=== PATIENT | male | born 1960 | race African-American/Black ===

== ENCOUNTER 2016-12-10 18:36 | Inpatient (IN) ==
[2016-12-10 19:36] LABS: URINE SOURCE VOIDED
[2016-12-10 19:38] LABS: BILIRUBIN URINE 3+ (NEGATIVE); BLOOD URINE NEGATIVE (NEGATIVE); CLARITY SL. CLOUDY (CLEAR); COLOR AMBER; GLUCOSE URINE NEGATIVE (NEGATIVE); LEUKOCYTES URINE 2+ (NEGATIVE); NITRITE URINE POSITIVE (NEGATIVE); PROTEIN URINE 1+(30 mg/dL) mg/dL (NEGATIVE); SP GRAVITY URINE 1.015
[2016-12-10 19:39] LABS: UROBILINOGEN URINE 3+(8 mg/dL)
[2016-12-10] MEDS ORDERED: NS 1,000 ML IV ONE ×2 (19:42→23:00)
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
[2016-12-10 19:46] LABS: MANUAL DIFF NEEDED? NO
[2016-12-10 19:51] LABS: BASO% 0.3 % (0.0-0.8); EOS# 0.02 X1000 (0.0-0.7); EOS% 0.3 % (0.0-10.0); HEMATOCRIT 40.7 % (42.0-52.0); HEMOGLOBIN 13.9 g/dL (14.0-18.0); IMM GRAN# 0.02 X1000 (0.0-0.04); IMM GRAN% 0.3 % (0.0-0.5); LYMPH# 1.67 X1000 (1.2-3.4); LYMPH% 22.9 % (20.5-51.1); MCH 30.3 PG (27-31); MCHC 34.2 g/dL (33-37); MCV 88.7 FL (81-99); MONO# 0.64 X1000 (0.11-0.59); MONO% 8.8 % (1.7-9.3); MPV 8.7 FL (7.4-10.4); NEUT% 67.4 % (42.2-75.2); PLT 374 X1000 (130-400); RBC 4.59 XMIL (4.7-6.1)
[2016-12-10 19:55] LABS: URINE RBC <10 /HPF (<10)
[2016-12-10 19:56] LABS: URINE CAST NONE SEEN /LPF; URINE CRYSTAL URIC ACID PRESENT /HPF; URINE CULTURE PL NEEDED? YES; URINE EPITHELIAL CELLS <10 /HPF (<10)
[2016-12-10 20:19] LABS: AGAP 13; ALKALINE PHOSPHATASE 256 U/L (32-122); AMYLASE 47 U/L (20-200); BUN 9 mg/dL (8-22); CALCIUM 8.7 mg/dL (8.8-10.2); CHLORIDE 100 mmol/L (98-107); COSMO 270; GOT 231 U/L (10-34); GPT 360 U/L (10-44); LIPASE 26 U/L (13-60); POTASSIUM 3.3 mmol/L (3.5-5.1); SODIUM 136 mmol/L (136-145); TCO2 23 mmol/L (25-35); TOTAL PROTEIN 7.5 g/dL (6.3-8.3)
[2016-12-10] MEDS ORDERED: ROCEPHIN 1 GM/NS 50 ML IV ONE (21:13)
[2016-12-10] MEDS ORDERED: ZOSYN 3.375 GM/NS 50 ML IV ONE (21:24)
[2016-12-10] MEDS ORDERED: NS 1,000 ML ONE (21:25)
[2016-12-10 21:32] LABS: UR AMPHETAMINES QUAL NONE DETECTED (NONE DETECT); UR BARBITUATES QUAL NONE DETECTED (NONE DETECT); UR BENZODIAZEPIN QUAL PRESUMPTIVE POSITIVE (NONE DETECT); UR CANNABINOIDS QUAL NONE DETECTED (NONE DETECT); UR COCAINE QUAL NONE DETECTED (NONE DETECT); UR MDMA QUAL NONE DETECTED (NONE DETECT); UR METHADONE QUAL NONE DETECTED (NONE DETECT); UR METHAMPHETAMINE QUAL NONE DETECTED (NONE DETECT); UR OPIATES QUAL NONE DETECTED (NONE DETECT); UR OXYCODONE QUAL NONE DETECTED (NONE DETECT); UR PCP QUAL NONE DETECTED (NONE DETECT); UR TCA QUAL NONE DETECTED (NONE DETECT)
[2016-12-10] MEDS ORDERED: TYLENOL PO PRN ×2 (23:13→23:53)
[2016-12-10] MEDS ORDERED: NS 1,000 ML IV SCH (23:15)
[2016-12-10 23:24] LABS: INR 1.07 (0.86-1.15); PROTIME 14.2 Seconds (12.1-15.5)
[2016-12-10 23:25] LABS: PTT PL 38.8 Seconds (22.6-43.9)
[2016-12-11] MEDS ORDERED: DILAUDID IV ONE (01:21)
[2016-12-11] MEDS ORDERED: NS 1,000 ML IV ONE (01:23)
[2016-12-11] MEDS: ZOSYN 2.25 GM/NS 50 ML IV SCH ×5 (04:27→23:07)
[2016-12-11] MEDS: DILAUDID IV PRN ×3 (04:29→21:04)
[2016-12-11 06:29] LABS: MANUAL DIFF NEEDED? NO
--- NOTE | 2016-12-11 06:57 | EKG Report ---
Test Performed on : 12/11/2016 06:17:55 AM Test Reason : Transaminitis,Abd Pain, Poss Surgical Patient Blood Pressure : / mmHG Vent. Rate : 074 BPM Atrial Rate : 074 BPM P-R Int : 142 ms QRS Dur : 088 ms QT Int : 404 ms P-R-T Axes : 062 013 023 degrees QTc Int : 448 ms Normal sinus rhythm. Normal ECG No previous ECGs available Confirmed by Dusty HENDRICKSON, Sky Ramirez ([id number]) on 12/11/2016 6:51:34 PM
[2016-12-11] MEDS: PRILOSEC PO SCH (06:58)
[2016-12-11] MEDS ORDERED: PRILOSEC PO SCH (07:00)
[2016-12-11 07:16] LABS: AGAP 12; ALBUMIN 3.1 g/dL (3.5-5.0); ALKALINE PHOSPHATASE 218 U/L (32-122); BASO% 0.3 % (0.0-0.8); BUN 9 mg/dL (8-22); CALCIUM 7.7 mg/dL (8.8-10.2); CHLORIDE 107 mmol/L (98-107); COSMO 276; EOS# 0.07 X1000 (0.0-0.7); EOS% 1.2 % (0.0-10.0); GOT 153 U/L (10-34); GPT 281 U/L (10-44); HEMATOCRIT 36.8 % (42.0-52.0); HEMOGLOBIN 12.5 g/dL (14.0-18.0); IMM GRAN# 0.02 X1000 (0.0-0.04); IMM GRAN% 0.3 % (0.0-0.5); LYMPH# 1.84 X1000 (1.2-3.4); LYMPH% 30.3 % (20.5-51.1); MCH 30.3 PG (27-31); MCV 89.1 FL (81-99); MONO# 0.74 X1000 (0.11-0.59); MONO% 12.2 % (1.7-9.3); MPV 9.2 FL (7.4-10.4); NEUT% 55.7 % (42.2-75.2); PLT 340 X1000 (130-400); POTASSIUM 3.6 mmol/L (3.5-5.1); RBC 4.13 XMIL (4.7-6.1); SODIUM 139 mmol/L (136-145); TCO2 20 mmol/L (25-35); TOTAL BILIRUBIN 6.32 mg/dL (0.20-1.00)
[2016-12-11] MEDS ORDERED: FLUZONE QUAD 2016-2017 SYRINGE IM ONE (08:10)
--- NOTE | 2016-12-11 08:31 | Diag Imaging Result Document ---
PROCEDURE NAME: FLAT/UPRIGHT ABD/1 VIEW CHEST - 12/10/2016 FLAT AND UPRIGHT ABDOMEN: FINDINGS: There is a wall stent apparently in the area of the common bile duct. There is stool in the colon. The small bowel and stomach are not distended. There is no evidence of organomegaly or mass. IMPRESSION: No evidence of obstruction. Mild constipation. PA CHEST: FINDINGS: There has been improvement in the atelectasis over the lung bases since 09/26/2015. Otherwise, there has been no significant change. IMPRESSION: No acute disease.
[2016-12-11] MEDS ORDERED: XANAX PO SCH (09:00)
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
[2016-12-11] MEDS: PRINZIDE 10/12.5MG PO SCH ×2 (11:51→13:38)
[2016-12-11] MEDS: XANAX PO SCH ×3 (11:51→16:38)
--- NOTE | 2016-12-11 15:40 | PROGRESS NOTE ---
DATE: 12/11/2016 SUBJECTIVE: The patient is still complaining of some mild abdominal pain. No nausea. No vomiting. No constipation. He is passing flatus. No bowel movement yet. OBJECTIVE: Vital signs: Blood pressure 140/86, pulse of 80, respirations 16, temperature 98.3 degrees, saturation of 96% on room air. General Appearance: Well-developed, well-nourished black male in mild distress due to abdominal pain. HEENT: Anicteric. Clear conjunctivae. Neck: Supple. No JVD. No bruit. Cardiovascular: S1, S2. Normal rate and rhythm. No murmur, rubs, or gallops. Pulmonary: Clear to auscultation bilaterally. GI: Soft, tender to palpation diffusely but mostly in the upper quadrants. Extremities: No clubbing, cyanosis, or edema. LABORATORY: Sodium 139, potassium 3.6, chloride 107, bicarb 20, BUN 9, creatinine 0.8, glucose of 86, AST 153, ALT 281, alkaline phosphatase of 218, albumin of 3.1. ASSESSMENT AND PLAN: 1. This is a 56-year-old black male with history of mass on head of the pancreas followed by Dr. Borjas at [facility] in [place]. Has not been followed with him seen August of last year. Concerning for malignancy and he had a stent on the common bile duct. Record from [place] still pending. Will send the patient for a CAT scan of the abdomen and pelvis with contrast to assess his pancreas. 2. For his transaminitis gastrointestinal is following. It is improving. Continue supportive care. Questionable the common bile duct stent may have been dislodged. 3. Urinary tract infection. The patient is on Zosyn currently, will keep him on for now. 4. Hypertension. Will continue lisinopril and hydrochlorothiazide. 5. Gastroesophageal reflux disease. Continue Prilosec. 6. Deep vein thrombosis prophylaxis. Will put the patient on Lovenox. CODE STATUS: The patient is a full code.
[2016-12-11] MEDS: LOVENOX SUBQ SCH (16:39)
--- NOTE | 2016-12-11 17:40 | Diag Imaging Result Document ---
PROCEDURE NAME: CT ABD/PELVIS W/ IV CONT ONLY - 12/11/2016 CT ABDOMEN PELVIS WITH IV CONTRAST ONLY: FINDINGS: Exam performed with intravenous contrast only per request of the referring provider. A dose reduction protocol was used. Compared with 09/04/2016. There is dependent atelectasis of the bilateral posterior lung bases. There is a biliary stent which appears stable in position. There has been interval decrease in pneumobilia. There is a small amount of air in the gallbladder. There are no calcified gallstones or gross pericholecystic inflammatory changes identified. There is mild dilatation of central intrahepatic bile ducts which appear grossly stable. There is no other liver lesion identified. There is no pancreatic mass or inflammation identified. There are mildly prominent shawna hepatis/portacaval and other retroperitoneal lymph nodes which are overall appear stable to slightly more prominent. There are no acute abnormalities of the spleen, adrenal glands, or kidneys identified. There is no hydronephrosis. There is no evidence of bowel obstruction. There is no substantial bowel wall thickening identified. There is no intraluminal gas or abscess identified related to bowel. There is no free air identified. IMPRESSION: 1. Dependent atelectasis at bilateral lung bases. 2. Biliary stent which appears stable in position. Interval decrease in pneumobilia. Grossly stable mild dilatation of central intrahepatic ducts. No calcified gallstones or gross pericholecystic inflammation seen. No pancreatic mass or inflammation identified. 3. Mild adenopathy, which may have increased slightly in the upper abdomen. 4. No bowel obstruction. Unremarkable appendix. 5. No abscess. No free air.
[2016-12-12] MEDS: ZOSYN 2.25 GM/NS 50 ML IV SCH ×6 (03:56→21:31)
[2016-12-12] MEDS: DILAUDID IV PRN ×4 (04:31→21:13)
[2016-12-12 05:46] LABS: MANUAL DIFF NEEDED? NO
[2016-12-12 05:50] LABS: BASO% 0.5 % (0.0-0.8); EOS# 0.08 X1000 (0.0-0.7); EOS% 1.4 % (0.0-10.0); HEMOGLOBIN 13.9 g/dL (14.0-18.0); IMM GRAN# 0.02 X1000 (0.0-0.04); IMM GRAN% 0.3 % (0.0-0.5); LYMPH# 1.72 X1000 (1.2-3.4); LYMPH% 29.9 % (20.5-51.1); MCH 30.4 PG (27-31); MCHC 34.8 g/dL (33-37); MCV 87.5 FL (81-99); MONO# 0.71 X1000 (0.11-0.59); MONO% 12.3 % (1.7-9.3); MPV 8.7 FL (7.4-10.4); NEUT% 55.6 % (42.2-75.2); PLT 414 X1000 (130-400); RBC 4.57 XMIL (4.7-6.1)
[2016-12-12 06:12] LABS: AGAP 11; ALBUMIN 3.6 g/dL (3.5-5.0); ALKALINE PHOSPHATASE 265 U/L (32-122); BUN 6 mg/dL (8-22); CALCIUM 9.3 mg/dL (8.8-10.2); CHLORIDE 101 mmol/L (98-107); COSMO 274; GOT 185 U/L (10-34); GPT 309 U/L (10-44); SODIUM 138 mmol/L (136-145); TCO2 26 mmol/L (25-35); TOTAL BILIRUBIN 7.77 mg/dL (0.20-1.00); TOTAL PROTEIN 7.1 g/dL (6.3-8.3)
[2016-12-12] MEDS: PRILOSEC PO SCH (06:19)
[2016-12-12] MEDS: PRINZIDE 10/12.5MG PO SCH (09:09)
[2016-12-12] MEDS: XANAX PO SCH ×3 (09:10→21:13)
--- NOTE | 2016-12-12 12:03 | CONSULTATION ---
DATE OF CONSULTATION: 12/11/2016 REASON FOR CONSULTATION: Possible occlusion of the biliary stent. HISTORY OF PRESENT ILLNESS: Mr. Anthony is a 56-year-old gentleman with a history of chronic pancreatitis and possible pancreatic mass. At that time a year ago, I tried to put a stent and there was high grade occlusion. We we sent him to Dr. Borjas at which time he had a metal stent put in. Since that time, the patient had complete resolution of the pancreatic mass affect from pancreatitis. However, his urine is getting darker. He was getting more abdominal pain and unable to eat. He had a somewhat similar spell in July, was treated with antibiotics. He came in with the same thing to the [facility] talked to me and we started him on Zosyn which we will continue. He probably needs his stent cleaned up. We will also get a CT scan down there and I will review that. REVIEW OF SYSTEMS: Fourteen point review was conducted with patient and is all negative other than HPI. PAST MEDICAL HISTORY: Nephrolithiasis, hypertension, hyperlipidemia, migraine, chronic pancreatitis, history of pancreatic mass which has resolved since, common bile duct stent placement which is likely partially occluded. PAST SURGICAL HISTORY: 1. Left eye surgery at 13 for traumatic injury. 2. Common bile duct stent placement. SOCIAL HISTORY: He smokes occasionally. He does not drink or take any drugs. FAMILY HISTORY: Positive for diabetes type 2, heart disease, hypertension. ALLERGIES: None. HOME MEDICATIONS: Lisinopril and hydrochlorothiazide 20/25 once a day, Sanborn 10 three times a day, Nexium 40 daily, Xanax 1 p.o. t.i.d. PHYSICAL EXAMINATION: Vital Signs: He is a pleasant gentleman, seems to be in mild distress. Temperature of 98 degrees, heart rate 80, respirations 18, blood pressure 120/80, O2 saturation 98% on room air. General: Well nourished, well built male in mild distress. HEENT: No conjunctival pallor. There was scleral icterus present. Neck: Supple. Trachea midline. Heart: Normal first and second heart sounds. Lungs: A few basilar rales. Abdomen: The abdomen is tender on deep palpation in the epigastric area. Bowel sounds present. Extremities: Unremarkable. LABORATORY DATA: Reveals a normal white count. The PT is slightly high at 14.2. Potassium low at 3.3. Total bilirubin 7.2, AST 231, ALT 360, alkaline phosphatase 256, amylase 47, lipase 26. Alcohol level 0. He does have positive benzodiazepines but he takes Xanax. CT scan of the abdomen once again shows resolution of pancreatic mass, mild intrahepatic biliary ductal dilation, stent seems to be in good position. ASSESSMENT AND PLAN: 1. Possible partial occlusion of the metal stent. 2. Possible cholangitis secondary to #1. 3. Continued increase in alkaline phosphatase and jaundice since July. I have reviewed all his old records and there is a steady increase that needs to be addressed. 4. Abdominal pain secondary to #1 and 2. 5. Hypertension. We will continue the antibiotics for 2-3 days. We will see how the liver function tests trend and I will plan on going in and looking at the stent and possibly cleaning it. If that is not possible, then we will deploy another stent. Further evaluation will be dependent on clinical response.
--- NOTE | 2016-12-12 16:12 | PROGRESS NOTE ---
DATE: 12/12/2016 SUBJECTIVE: The patient is still complaining of having abdominal pain. He denies having any fever or chills. Still having mild nausea, but able to keep food down without any difficulty. OBJECTIVE: Vital Signs: Blood pressure 121/66, pulse of 77, respirations 16, temperature 98.3 degrees, saturation 95% on room air. General Appearance: Well-developed, well-nourished, black male, in mild distress. HEENT: Anicteric sclerae. Clear conjunctivae. Neck: Supple. No JVD. No bruit. Cardiovascular: S1, S2. Normal rate and rhythm. No murmur, rubs, or gallops. Pulmonary: Clear to auscultation bilaterally. GI: Soft, mildly tender to palpation around the epigastric regions. Lower extremity: No clubbing, cyanosis, or edema. LABORATORY: White count 5.75, hemoglobin 13.9, hematocrit of 40, platelets of 414,000. Chemistry: Sodium 138, potassium 4, chloride 101, bicarb 26, BUN 6, creatinine 0.9, glucose of 107. Liver function tests: AST 185, ALT 309, alkaline phosphatase of 265. ASSESSMENT AND PLAN: This is a 56-year-old black male admitted to the hospital for transaminitis. 1. Transaminitis. The patient had stent placed last year on his common bile duct concerning for obstruction of the stent. Gastroenterology is following. They are planning to do another endoscopic retrograde cholangiopancreatography to clean out the stent if his alkaline phosphatase continues to elevate. 2. Hypertension. We will continue lisinopril and hydrochlorothiazide. 3. Anxiety disorder. Continue Xanax. 4. Deep vein thrombosis prophylaxis. Continue Lovenox. 5. Code Status: The patient is a full code.
[2016-12-12] MEDS: SODIUM CHLORIDE 0.9% INJ SCH (16:29)
[2016-12-12] MEDS: PROTONIX IV SCH (16:29)
[2016-12-12] MEDS: LOVENOX SUBQ SCH (16:29)
--- NOTE | 2016-12-12 18:30 | PROGRESS NOTE ---
DATE: 12/12/2016 SUBJECTIVE: Patient complains of ongoing epigastric pain and periumbilical abdominal pain. He also complains of change in color of his urine to deep yellow color. He denies any vomiting today. He denies any fevers, rigors, chills. Vital signs: Temperature of 97.6 degrees, pulse rate of 79, respiratory rate of 16, blood pressure 115/70, saturating 90% on room air. General Appearance: Moderately built, moderately nourished, lying in bed, in no acute distress. HEENT: Icteric sclerae. Mild pallor. Pupils equal, react to light. Neck: Supple. Abdomen : Discomfort. No rebound or guarding. Extremities: No cyanosis, clubbing, and edema. Neurologic: He is alert, awake, oriented. LABS: His hemoglobin and hematocrit 13.9 and 40, white count 5.7, platelet count of 14,140. Sodium 138, potassium 4, chloride 101, bicarb 20. Anion gap 11. BUN of 6, creatinine 0.9, glucose of 107, calcium is 9.3. Total bilirubin 7.7, AST 185, ALT 309, alkaline phosphatase 265, total protein 7.1, albumin 2.6. INR 1.07, and urine tox positive for benzodiazepines. IMPRESSION AND PLAN: 1. Pancreatic head mass discovered in 2016 status post ERCP with Metal stent placement by Dr. Palafox at [facility] in 2016. Being admitted with worsening jaundice, elevated liver enzymes and abdominal pain. Suspect the stent occlusion. In this regard the patient will be continued on IV fluids, IV antibiotics. Will velarde culture the patient. We will draw some blood cultures. Dr. Aguila will assess and evaluate for possible ERCP on Saturday. His pancreatic head mass has resolved per the current imaging. 2. Pancreatic head mass discovered in 2016. Mildly elevated CA-19-9. Based on current CT scan the pancreatic head swelling had resolved. 3. GI prophylaxis with Protonix once daily. 4. Bowel regimen. We will start the patient on MiraLAX and Dulcolax. 5. Further continuing the pain management per the primary team. 6. Jaundice: will watch for now and avoid hepatotoxic drugs. Discussed the above plan with patient and all questions were answered. Further recommendations pending the hospital course. [facility]
[2016-12-13] MEDS: DILAUDID IV PRN ×4 (04:02→22:45)
[2016-12-13] MEDS: ZOSYN 2.25 GM/NS 50 ML IV SCH ×4 (04:24→21:47)
[2016-12-13 06:15] LABS: BASO% 1.8 % (0.0-0.8); EOS# 0.16 X1000 (0.0-0.7); EOS% 3.5 % (0.0-10.0); HEMATOCRIT 38.8 % (42.0-52.0); HEMOGLOBIN 13.5 g/dL (14.0-18.0); IMM GRAN# 0.03 X1000 (0.0-0.04); IMM GRAN% 0.7 % (0.0-0.5); LYMPH# 1.37 X1000 (1.2-3.4); LYMPH% 30.1 % (20.5-51.1); MANUAL DIFF NEEDED? YES; MCH 30.4 PG (27-31); MCHC 34.8 g/dL (33-37); MCV 87.4 FL (81-99); MONO# 0.52 X1000 (0.11-0.59); MONO% 11.4 % (1.7-9.3); MPV 8.6 FL (7.4-10.4); NEUT% 52.5 % (42.2-75.2); PLT 424 X1000 (130-400); RBC 4.44 XMIL (4.7-6.1)
[2016-12-13 06:24] LABS: AGAP 13; ALBUMIN 3.4 g/dL (3.5-5.0); ALKALINE PHOSPHATASE 256 U/L (32-122); AMYLASE 38 U/L (20-200); BUN 6 mg/dL (8-22); CALCIUM 9.2 mg/dL (8.8-10.2); CHLORIDE 99 mmol/L (98-107); COSMO 273; GOT 218 U/L (10-34); GPT 356 U/L (10-44); LIPASE 20 U/L (13-60); POTASSIUM 3.8 mmol/L (3.5-5.1); SODIUM 138 mmol/L (136-145); TCO2 26 mmol/L (25-35); TOTAL BILIRUBIN 6.72 mg/dL (0.20-1.00)
[2016-12-13 06:30] LABS: EOS 4 % (1-10); LYMPHS 26 % (21-51); MONO 6 % (1-9)
[2016-12-13] MEDS: XANAX PO SCH ×3 (10:49→21:47)
[2016-12-13] MEDS: PRINZIDE 10/12.5MG PO SCH (10:49)
--- NOTE | 2016-12-13 11:37 | PROGRESS NOTE ---
DATE: 12/13/2016 SUBJECTIVE: Patient currently resting in bed. He complained of abdominal discomfort but it has improved from yesterday. He had 1 bowel movement today. He denies any nausea, vomiting, fevers, rigors, chills.Vital signs: Temperature 98.5, pulse rate of 83, respiratory rate 16, blood pressure 102/61, saturating 98% on room air. General Appearance: Moderately built, moderately nourished, lying in bed, in no acute distress. HEENT: Icteric sclerae. Mild pallor. Pupils equal, react to light. Neck: Is supple. Abdomen: Discomfort noted in the right upper quadrant. No rebound. No guarding. Bowel sounds are present. Extremities: No cyanosis, clubbing, edema. Neurologic: He is alert, awake, oriented. LABS: His hemoglobin and hematocrit is 13.5 and 38.8, white count of 4.5, platelet count of 424,000. Sodium 130, potassium 3.8, chloride 99, bicarb 20, anion gap 13, BUN of 6, creatinine 0.9, glucose of 91, calcium 9.2. Total bilirubin 6.7, direct of 5.4. AST 218, ALT 356, alkaline phosphatase is 256. Total protein 7, albumin of 3.4, amylase of 38, lipase of 20. Looking back at his records from 09/04/2016 his acute hepatitis panel was negative. His RUDDY was positive. Anti-DS DNA was 34.26 which is positive. His anti SSA was positive more than 8. Antimitochondrial antibody was negative less than 0.01. Anti smooth antibody was negative. IMPRESSION AND PLAN: 1. Jaundice secondary to common bile duct metal stent occlusion which was performed by Dr. Palafox at [facility] in August 2016. Will continue on supportive care with IV fluids, IV antibiotics, IV pain control, IV antiemetics. The patient will be scheduled for ERCP tomorrow by Dr. Aguila. The risks, benefits, indications and alternatives discussed with the patient and all questions answered. 2. Pancreatic head mass was discovered in 2015 which is now resolved per the repeat CT scan. It is unclear of pathology. We need to perform a few more tests like IgG 4 level to evaluate for autoimmune pancreatitis or groove pancreatitis. 3. GI prophylaxis with Protonix once daily. 4. Bowel regimen with MiraLAX and Dulcolax to continue as patient is on IV pain control. 5. The patient is positive RUDDY. Unclear significance but if his liver enzymes continue to stay elevated despite placement of the stent we may have to perform a liver biopsy at some point. 6. Patient will need an outpatient workup by a department assistant to evaluate for any kind of autoimmune illness. 7. Above plan discussed with the patient and all questions answered.
[2016-12-13] MEDS: PROTONIX IV SCH ×2 (12:12→14:46)
--- NOTE | 2016-12-13 14:51 | PROGRESS NOTE ---
DATE: 12/13/2016 SUBJECTIVE: The patient is feeling about the same as he was yesterday. Still having mild abdominal pain. No fever. No chills. OBJECTIVE: Vital Signs: Blood pressure 121/78, pulse of 88, respirations 16, temperature 97.8 degrees, saturation 94% on room air. General Appearance: Obese, black male, in no acute distress. HEENT: Anicteric. Clear conjunctivae. Neck: Supple. No JVD. No bruit. Cardiovascular: S1, S2. Normal rate and rhythm. No murmur, rubs, or gallops. Pulmonary: Clear to auscultation bilaterally. GI: Mild tenderness to palpation about the epigastric region. Extremities: No clubbing, cyanosis, or edema. LABORATORY: His white count is 4.5, hemoglobin 13.5, hematocrit of 38.8, platelets of 424,000. Chemistry: Sodium 138, potassium 3.8, chloride 99, bicarb 24, BUN 6, creatinine 0.9, glucose 91. His AST is elevated to 218, ALT 356, and alkaline phosphatase of 256. ASSESSMENT AND PLAN: This is a 56-year-old with transaminitis. 1. Transaminitis. The patient had a stent placed when he had the pancreatic mass; that has since resolved. Concerning for nonfunctional stent. GI was consulted and plan to do an ERCP tomorrow to remove the stent and possibly replace it. We will continue the current antibiotics for now. 2. Hypertension. We will continue Zestoretic. 3. Deep vein thrombosis prophylaxis. The patient is on Lovenox.
[2016-12-13] MEDS: LOVENOX SUBQ SCH (16:20)
[2016-12-14] MEDS: DILAUDID IV PRN ×4 (04:16→21:05)
[2016-12-14] MEDS: ZOSYN 2.25 GM/NS 50 ML IV SCH ×4 (05:28→21:57)
[2016-12-14] MEDS: PRINZIDE 10/12.5MG PO SCH ×2 (08:52→08:55)
[2016-12-14] MEDS: XANAX PO SCH ×3 (09:34→21:06)
--- NOTE | 2016-12-14 11:33 | PROGRESS NOTE ---
DATE: 12/14/2016 SUBJECTIVE: Patient reports he is having mild abdominal pain but it is relieved by medications. He denies any nausea, vomiting, or additional symptoms at this time. OBJECTIVE: Vital Signs: Temperature 98.5 degrees, pulse 90, respirations 18, blood pressure 122/85, O2 saturation 97% on room air. HEENT: Normocephalic, atraumatic. Neck : Supple. No JVD Chest: Respirations unlabored. No accessory muscle use noted. Cardiovascular : Normal S1, S2. Abdomen: Soft. Moderately tender in the epigastric area. Positive bowel sounds. Extremities: No evidence of clubbing, cyanosis, or edema. Neurologic: The patient is alert and oriented x4. No neurological deficits noted. DIAGNOSTIC DATA: CBC: White count 4.55, hemoglobin and hematocrit 13.5, 38.8, platelets 424,000. BMP unremarkable. LFTs: Total bilirubin 6.72, direct 5.40, AST 218, ALT 356. Alkaline phosphatase 256. ASSESSMENT AND PLAN: 1. Transaminitis. The patient did have a stent placed for pancreatic mass that has since resolved according to CAT scan. There is concern for a nonfunctional stent and he is awaiting an ERCP by Dr. Aguila today to replace the occluded stent. Continue with current antibiotics and pain medications as well as antiemetics. 2. Hypertension. This is controlled. We will continue current therapy. 3. Deep vein thrombosis prophylaxis. He is on Lovenox. Further orders pending physician evaluation. Dictated by ERIKA Dumont for Noah Pruitt MD I personally evaluated and examined the patient in conjunction to the REHAB AIDE and agreed with her assessment and plans. Discussed with Dr. Meadows. FELICIANO
[2016-12-14] MEDS ORDERED: GLUCAGON ONE (14:18)
[2016-12-14] MEDS ORDERED: MYLICON DROPS (DOSE) MISC ONE (14:40)
[2016-12-14] MEDS ORDERED: DIPRIVAN 1% ONE (15:46)
[2016-12-14] MEDS ORDERED: XYLOCAINE-MPF 2% ONE (15:50)
[2016-12-14] MEDS ORDERED: ANESTHESIA PB SET 88 IN 5742 ONE (15:51)
[2016-12-14] MEDS ORDERED: LR 1,000 ML ONE (15:51)
--- NOTE | 2016-12-14 15:53 | Diag Imaging Result Document ---
PROCEDURE NAME: ERCP-BILIARY AND PANCREATIC - 12/14/2016 ERCP, 8 IMAGES: FINDINGS: No contrast was administered. There is placement of a biliary stent through a wall stent by Dr. Alfaro. IMPRESSION: Placement of biliary stent.
[2016-12-14] MEDS: ZOFRAN IV PRN ×2 (16:08→21:05)
[2016-12-14] MEDS: PROTONIX IV SCH ×2 (16:18→16:19)
[2016-12-14] MEDS: LOVENOX SUBQ SCH (16:20)
[2016-12-15] MEDS: ZOSYN 2.25 GM/NS 50 ML IV SCH ×4 (05:10→23:25)
[2016-12-15] MEDS: XANAX PO SCH ×2 (10:00→14:30)
[2016-12-15] MEDS: PRINZIDE 10/12.5MG PO SCH (10:00)
--- NOTE | 2016-12-15 14:18 | PROGRESS NOTE ---
DATE: 12/15/2016 SUBJECTIVE: The patient does have a temperature and fever overnight but no nausea, no vomiting. Vital signs: Blood pressure 96/57, pulse of 65, respiration is 20, temperature of 100.4 degrees. General appearance: A well-developed, well-nourished, black male, in no acute distress. HEENT: Anicteric. Clear conjunctivae. Neck: Supple. No JVD. No bruit. Cardiovascular: S1, S2. Normal rate and rhythm. No murmur, rubs, or gallops. Pulmonary: Clear to auscultation bilaterally. GI: Soft, tender to palpation on the right upper quadrant. Extremities: No clubbing, cyanosis, or edema. LABORATORY: Sodium 136, potassium of 5.0, chloride 97, bicarb 25, BUN 3.5. AST is 170, ALT 347, creatinine 0.8. White count 9.83, hemoglobin 14.0, hematocrit of 40.1, platelets of 434,000. ASSESSMENT AND PLAN: This is a 56-year-old black male with a history of pancreatic mass that has since resolved. The patient has a stent in the common bile duct and admitted for transaminitis. 1. Transaminitis. Secondary to stent clotting. Status post ERCP. Dr. Aguila came in and clean out old stent and put in a new stent. Liver function is trending down. The patient feeling better. 2. Fever. We will keep the patient on Zosyn for now and monitor his vital signs. For the next 24 hours if stable the patient can go home then. 3. Other chronic issues, we will continue the current medication.
[2016-12-15] MEDS: PROTONIX IV SCH (15:30)
[2016-12-15] MEDS: DILAUDID IV PRN ×2 (15:30→22:10)
[2016-12-15] MEDS: SODIUM CHLORIDE 0.9% INJ SCH (15:35)
[2016-12-15] MEDS: LOVENOX SUBQ SCH (15:35)
[2016-12-15 16:46] LABS: AGAP 14; ALBUMIN 3.5 g/dL (3.5-5.0); ALKALINE PHOSPHATASE 330 U/L (32-122); BUN 7 mg/dL (8-22); CALCIUM 9.2 mg/dL (8.8-10.2); CHLORIDE 97 mmol/L (98-107); COSMO 271; GOT 170 U/L (10-34); GPT 347 U/L (10-44); SODIUM 136 mmol/L (136-145); TCO2 25 mmol/L (25-35); TOTAL BILIRUBIN 9.73 mg/dL (0.20-1.00); TOTAL PROTEIN 7.4 g/dL (6.3-8.3)
[2016-12-15 17:01] LABS: HEMATOCRIT 40.1 % (42.0-52.0); MCH 30.6 PG (27-31); MCHC 34.9 g/dL (33-37); MCV 87.6 FL (81-99); MPV 8.7 FL (7.4-10.4); RBC 4.58 XMIL (4.7-6.1)
[2016-12-16] MEDS: XANAX PO SCH ×2 (00:23→09:48)
[2016-12-16] MEDS: DILAUDID IV PRN ×3 (01:46→09:48)
[2016-12-16] MEDS: ZOSYN 2.25 GM/NS 50 ML IV SCH ×2 (05:33→09:48)
[2016-12-16 06:50] LABS: BASO% 0.2 % (0.0-0.8); EOS# 0.02 X1000 (0.0-0.7); EOS% 0.2 % (0.0-10.0); HEMATOCRIT 35.1 % (42.0-52.0); HEMOGLOBIN 12.6 g/dL (14.0-18.0); IMM GRAN# 0.07 X1000 (0.0-0.04); IMM GRAN% 0.7 % (0.0-0.5); LYMPH# 1.56 X1000 (1.2-3.4); LYMPH% 14.7 % (20.5-51.1); MANUAL DIFF NEEDED? YES; MCHC 35.9 g/dL (33-37); MCV 86.5 FL (81-99); MONO# 1.52 X1000 (0.11-0.59); MONO% 14.3 % (1.7-9.3); MPV 8.9 FL (7.4-10.4); NEUT% 69.9 % (42.2-75.2); PLT 389 X1000 (130-400); RBC 4.06 XMIL (4.7-6.1)
[2016-12-16 06:52] LABS: AGAP 14; ALBUMIN 3.3 g/dL (3.5-5.0); ALKALINE PHOSPHATASE 275 U/L (32-122); BUN 12 mg/dL (8-22); CALCIUM 8.6 mg/dL (8.8-10.2); CHLORIDE 93 mmol/L (98-107); COSMO 261; GOT 91 U/L (10-34); GPT 234 U/L (10-44); POTASSIUM 3.7 mmol/L (3.5-5.1); SODIUM 130 mmol/L (136-145); TCO2 23 mmol/L (25-35); TOTAL BILIRUBIN 11.21 mg/dL (0.20-1.00); TOTAL PROTEIN 6.8 g/dL (6.3-8.3)
[2016-12-16 08:16] LABS: BANDS 10 % (0-1); LYMPHS 18 % (21-51); MONO 12 % (1-9)
[2016-12-16] MEDS: PRINZIDE 10/12.5MG PO SCH (09:48)
[2016-12-16 12:57] VITALS: BP 113/57
--- NOTE | 2016-12-16 16:59 | DISCHARGE SUMMARY ---
ADMISSION DATE: 12/12/2016 DISCHARGE DATE: 12/16/2016 DISCHARGE DIAGNOSES: 1. Transaminitis, improved. 2. History of stent in the common bile duct. 3. Hypertension. 4. Anxiety disorder. DISCHARGE MEDICATIONS: 1. Xanax 1 mg t.i.d. p.r.n. for anxiety. 2. Riverside 10 p.r.n. t.i.d. 3. Nexium 40 mg p.o. daily. 4. Zestoretic 20-25 daily. CONSULTATION: 1. GI was consulted for transaminitis. PROCEDURE: ERCP with stent placement by Dr. Aguila. The procedure went well. LABORATORY AT DISCHARGE: White blood cells 10.62, hemoglobin 12.6, hematocrit 35.1, platelets of 389,000. Chemistry: Sodium 130, potassium 3.7, chloride 93, bicarbonate 23, BUN 12, creatinine 1.2, glucose of 107. AST is down to 91. ALT down to 234. Alkaline phosphatase down to 275 to as high as 330. HOSPITAL COURSE: The patient is a 56-year-old black male with a history of a pancreatic mass and had a stent placed by Dr. Palafox at [facility] in [place] back in August. He presented to our hospital for abdominal pain and was found to have elevated liver enzymes and alkaline phosphatase. GI was consulted, and Dr. Aguila did an ERCP, clean out the old stent, and put in another stent. His transaminitis has improved. The patient has been on Zosyn for the entire course of his admission. He is still having just mild abdominal pain, but the patient has Riverside at home that he can take. From our standpoint, the patient can go, and he can follow up with Dr. Palafox to remove the stent if needed and will have him to follow up with Dr. Alfaro or Dr. Aguila in a few weeks. The patient is doing well. Tolerating p.o. without any difficulty. PHYSICAL EXAMINATION AT DISCHARGE: Vital Signs: Blood pressure 102/62, pulse of 89. Respirations 17. Saturations of 97%. Temperature 98.6 degrees. General appearance: Well- developed, well-nourished black male in no acute distress. HEENT: Anicteric. Clear conjunctivae. Neck: Supple. No JVD. No bruits. Cardiovascular: S1, S2. Normal rate and rhythm. No murmur, rubs, or gallops. Pulmonary: Clear to auscultation bilaterally. GI: Soft, nontender, nondistended. Normoactive bowel sounds. Musculoskeletal: No clubbing, cyanosis, or edema. PLAN: We will discharge the patient home. CONDITION: Stable and improving. ACTIVITY: As tolerated. FOLLOWUP: The patient can follow up with Dr. Aguila in 1-2 weeks. TIME SPENT ON DISCHARGE: 35 minutes.
--- NOTE | 2017-01-18 13:26 | OPERATIVE NOTE ---
PROCEDURE DATE: 12/14/2016 PROCEDURE: ERCP with occluded metal stent, lavaged and another stent placement. PREOPERATIVE DIAGNOSIS: Status post wall stent, occlusion and cholangitis. POSTOPERATIVE DIAGNOSIS: Status post wall stent, occlusion and cholangitis, new stent placement. Patient had an ERCP and a wall stent placed for pancreatic tumor however after a year the patient's tumor resolved and he is getting regular cholangitis for possibly recurrent obstruction. DESCRIPTION OF PROCEDURE: After informed consent and adequate intravenous sedation by Anesthesia, the scope was introduced to the esophagus, stomach and duodenum. The wall stent is identified. It is totally occluded with food residue and bezoar. This was cleansed however a part of this is quite hardened. At this point, a long 7 cm 10-[place] stent was deployed. The scope was withdrawn. The patient tolerated the procedure without any immediate complications. RECOMMENDATION: I have talked to Dr. Christine. We will get this wall stent removed. I know this is not a covered stent however it is possible to remove because of his recurrent problems and so called pancreatic mass proved to be inflammatory mass and not cancer. I have arranged for his transfer to [place]. cc: Michael Aguila MD
== END 2016-12-16 13:29 | disposition home or self-care (01) ==
LOC: P.ED 18:36 → 4N 23:46 → OBSVTOIN 12-12 19:27
PROVIDERS: ATTEND Internal Medicine

== ENCOUNTER 2019-10-21 22:36 | Observation (INO) ==
[2019-10-21 23:03] LABS: BE 0.3 mmoll (-3.0-3.0); BLOOD TYPE ARTERIAL; HCO3-(ACT) 24.6 mmoll (20.0-26.0); METHB 1.1 % (0.0-1.5); O2(CT) 15.6 mL/dL (15.0-23.0); PCO2(98.6) 33 mmHg (35-45); PO2(98.6) 66 mmHg (60-100); SAMPLE BLOOD; SAO2 98.1 % (95.0-100.0); THB 14.4 g/dL (11.5-17.4); pH(98.6) 7.46 (7.35-7.45)
[2019-10-21 23:09] LABS: ALLEN TEST YES; MODALITY ROOM AIR
[2019-10-21 23:14] LABS: BASO# 0.02 X1000 (0.0-0.2); BASO% 0.2 % (0.0-0.8); EOS# 0.07 X1000 (0.0-0.7); EOS% 0.8 % (0.0-10.0); HEMATOCRIT 40.2 % (42.0-52.0); HEMOGLOBIN 13.5 g/dL (14.0-18.0); IMM GRAN# 0.02 X1000 (0.0-0.04); IMM GRAN% 0.2 % (0.0-0.5); LYMPH# 3.37 X1000 (1.2-3.4); LYMPH% 37.7 % (20.5-51.1); MCH 30.2 PG (27-31); MCHC 33.6 g/dL (33-37); MCV 89.9 FL (81-99); MONO# 0.77 X1000 (0.11-0.59); MONO% 8.6 % (1.7-9.3); MPV 8.7 FL (7.4-10.4); NEUT# 4.69 X1000 (1.4-6.5); NEUT% 52.5 % (42.2-75.2); PLT 334 X1000 (130-400); RBC 4.47 XMIL (4.7-6.1); RDW 15.9 % (11.5-14.5); WBC 8.94 X1000 (4.8-10.8)
[2019-10-21 23:31] LABS: AGAP 12; ALBUMIN 4.3 g/dL (3.5-5.0); ALKALINE PHOSPHATASE 42 U/L (32-122); BUN 16 mg/dL (8-22); CALCIUM 9.2 mg/dL (8.8-10.2); CHLORIDE 109 mmol/L (98-107); COSMO 286; CREATININE 1.1 mg/dL (0.7-1.2); ESTIMATED GFR > 60; GLUCOSE 100 mg/dL (70-104); GOT 40 U/L (10-34); GPT 27 U/L (10-44); POTASSIUM 4.1 mmol/L (3.5-5.1); SODIUM 143 mmol/L (136-145); TCO2 23 mmol/L (25-35); TOTAL PROTEIN 7.4 g/dL (6.3-8.3)
[2019-10-22 06:17] LABS: BE -1.1 mmoll (-3.0-3.0); BLOOD TYPE ARTERIAL; O2(CT) 17.9 mL/dL (15.0-23.0); O2HB 95.7 % (95.0-99.0); PCO2(98.6) 42 mmHg (35-45); PO2(98.6) 109 mmHg (60-100); SAMPLE BLOOD; SAO2 99.6 % (95.0-100.0); THB 13.2 g/dL (11.5-17.4); pH(98.6) 7.37 (7.35-7.45)
[2019-10-22 06:20] LABS: ALLEN TEST YES; MODALITY NRB
--- NOTE | 2019-10-22 07:36 | Diag Imaging Result Doc PS360 ---
EXAM: CHEST-2 VIEWS - 10/21/2019 HISTORY: cough TECHNIQUE: Chest two views COMPARISON: 06/26/2018 FINDINGS: Heart size is normal. There is mild tortuosity of the thoracic aorta similar to prior. Inspiration is somewhat shallow. There is mild subsegmental atelectasis at the lung bases. The remainder the lungs appear clear. There is no pleural effusion or pneumothorax identified. IMPRESSION: Somewhat shallow inspiration, with basilar subsegmental atelectasis. Electronically signed by Shawn Tejeda 10/22/2019 7:34 AM
[2019-10-22] MEDS ORDERED: PNEUMOVAX 23 IM ONE (12:00)
[2019-10-22 12:29] VITALS: BP 139/86
[2019-10-22] MEDS ORDERED: MOTRIN PO PRN ×2 (13:47→14:47)
[2019-10-22] MEDS ORDERED: MOTRIN PO SCH (14:00)
[2019-10-22] MEDS ORDERED: AMBIEN PO PRN (16:20)
[2019-10-22] MEDS ORDERED: MOBIC PO SCH (16:30)
[2019-10-22] MEDS ORDERED: TYLENOL PO PRN (16:39)
[2019-10-22] MEDS ORDERED: NEURONTIN PO SCH (17:00)
--- NOTE | 2019-10-22 19:26 | HISTORY AND PHYSICAL ---
CHIEF COMPLAINT: He has shortness of breath and headache. HISTORY OF PRESENT ILLNESS: This is a 59-year-old gentleman, with a prior history of hypertension and chronic back pain, who presents to the emergency room complaining of being lightheaded, feeling like he could not move, having a headache. He states that he has been painting a house with a gas generator that has been running for 2 days. He developed shortness of breath, a headache, and a feeling that he could not move. Therefore, he presented to the emergency room. According to the chart, he was noted to have a erythematous eyes. PAST MEDICAL HISTORY: 1. Hypertension. 2. Chronic back pain. 3. Liver disease. 4. Migraines. PAST SURGICAL HISTORY: "Some kind of liver surgery". SOCIAL HISTORY: He denies any alcohol, tobacco, or illicit drug use. ALLERGIES: No known drug allergies. HOME MEDICATIONS: 1. Ambien. 2. Meloxicam. 3. Lisinopril/hydrochlorothiazide. 4. Gabapentin. 5. Elavil. Doses will be obtained by the nursing staff. REVIEW OF SYSTEMS: Discussed with patient with pertinent positives stated in the HPI. He denied any syncope or dizziness, any chest pain or palpitations, any shortness of breath, cough, fever, chills, any night sweats, any nausea, vomiting, diarrhea, constipation, black or bloody vomitus or stools, any hematuria, dysuria, frequency, urgency. PHYSICAL EXAMINATION: GENERAL: This is a 59-year-old gentleman who is sitting up on the bed in no distress. VITAL SIGNS: Blood pressure is 149/70 with a heart rate of 78, respirations are 18. Temperature is 98.4 degrees with O2 saturations that are 100% on 100% nonrebreather. HEENT: Head is normocephalic, atraumatic. Mucous membranes are moist. NECK: Supple with trachea midline. CARDIOVASCULAR: Regular rate and rhythm. S1 and S2 are appreciated. He has no lower extremity edema. Calves are nontender bilaterally with peripheral pulses palpable x4 extremities. PULMONARY: Breath sounds are clear. No increased work of breathing noted. Chest rises and falls symmetrically with respiration. GASTROINTESTINAL: Abdomen is soft, nontender, nondistended with bowel sounds in all 4 quadrants. NEUROLOGIC: He is alert and oriented. SKIN: Warm and dry. LABORATORY DATA: WBC is 8.9 with hemoglobin 13.5, hematocrit 40.2, platelets of 334,000. Sodium 143, potassium 4.1, BUN 16, creatinine 1.1 with glucose of 100. ABGs at 10:50 p.m.: PH 7.46, pCO2 33, pO2 66, and a bicarb of 24.6. His carboxyhemoglobin is 20.5. These are on room air. ABGs at 6 a.m.: PH 7.3 with pCO2 42, pO2 109, bicarb of 24, and carboxyhemoglobin is 3. These are on non-rebreather. ASSESSMENT AND PLAN: 1. Carbon monoxide poisoning. He has received 100% oxygen all night. His carboxyhemoglobin is decreased. We will place him on room air and monitor. 2. History of hypertension. We will identify home medications and continue as appropriate. 3. Gastroesophageal reflux disease. We will continue his home medications. 4. Chronic pain. We will identify home medications and continue. 5. Plan was discussed with Dr. Wilson. Further treatments pending hospital course. Dictated by ERIKA Wilks for Sha Wilson MD cc: ERIKA Wilks MD
--- NOTE | 2019-10-22 20:50 | HISTORY AND PHYSICAL ---
CHIEF COMPLAINT: Shortness of breath. HISTORY OF PRESENT ILLNESS: Patient is a 59-year-old male who presented to the ER after being confused, disoriented, and short of breath. 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 States that he was found today confused and disoriented. Therefore, he came to the ER. States that he feels weak and tremulous. ALLERGIES: No known drug allergies. MEDICATIONS: 1. Hydrocodone. 2. Zestoretic. 3. Gabapentin. 4. Prilosec. REVIEW OF SYSTEMS: As noted above. Positive cough, short of breath, dizzy, lightheaded, feels weak. Denies any blurred vision, change in vision. Denies any chest pain, palpitations. Does have a headache. Denies dysuria, frequency, urgency, hesitancy, polyuria or polydipsia. PAST MEDICAL HISTORY: 1. Hypertension. 2. Hyperlipidemia. 3. History of pancreatic disease with frequent pancreatitis. 4. Chronic liver disease. 5. Recurrent kidney stones. 6. Migraines. 7. Diabetes. SURGICAL HISTORY: 1. 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 2. He has had surgery on his liver. FAMILY HISTORY: Noncontributory. SOCIAL HISTORY: Patient does not currently smoke or drink. He denies illicit substance use. PHYSICAL EXAMINATION: VITAL SIGNS: Reviewed. Temperature 99 degrees, pulse 116, respiratory 18, BP 147/89, saturating 96% on room air. GENERAL: He is awake, alert, pleasant, currently in no respiratory distress. HEENT: Normocephalic. NECK: Supple. CARDIOVASCULAR: Regular rate. CHEST: Clear. ABDOMEN: Soft, nondistended, nontender. EXTREMITIES: Moves all extremities. NEUROLOGIC: No focal neurological changes. Patient is awake, alert, oriented. He is very pleasant to talk with. SKIN: No skin rashes. ASSESSMENT: 1. Elevated carboxyhemoglobin at 20.5. 2. Acute hypoxic respiratory failure. 3. Hypertension. 4. Diabetes. PLAN: We are going to admit the patient to the hospital. We will place him on oxygen, continue to follow, continue to educate the importance of not staying in a closed environment. cc: Sha Wilson MD
[2019-10-22] MEDS ORDERED: FISH OIL CONCENTRATE PO SCH (21:00)
[2019-10-22] MEDS ORDERED: ELAVIL PO SCH (21:00)
--- NOTE | 2019-10-23 18:21 | DISCHARGE SUMMARY ---
ADMISSION DATE: 10/22/2019 DISCHARGE DATE: 10/22/2019 DISCHARGE DIAGNOSES: 1. Acute hypoxic respiratory failure, resolved. 2. Acute elevated carboxyhemoglobin secondary in the secondary to inhalational injury, resolved. 3. Hypertension. 4. Migraines. CONSULTATIONS: None. PROCEDURES: None. BRIEF HOSPITAL COURSE: The patient is a very pleasant 59-year-old male who presented to the hospital as noted in the HPI. Was treated in the usual fashion with high-dose oxygen, continued on his home medications. Thankfully, on discharge his labs were stable. He was saturating 99% on room air. He was improved, and therefore, he will be discharged home. Again discussed with patient he will continue all his home medications at home. Discussed that he needs to avoid all smoke and smoke exposure as well as make sure that he works in a well ventilated area. He will follow up with his primary care as needed. cc: Sha Wilson MD
== END 2019-10-22 21:56 | disposition home or self-care (01) ==
LOC: P.MEDSURG 22:36 → P.ED 22:36
PROVIDERS: ATTEND Family Medicine

== ENCOUNTER 2019-12-08 17:58 | Inpatient (IN) ==
[2019-12-08] MEDS ORDERED: MORPHINE IV ONE (18:01)
[2019-12-08] MEDS ORDERED: ZOFRAN IV ONE (18:02)
[2019-12-08] MEDS ORDERED: NS 2,800 ML IV ONE (18:12)
[2019-12-08] MEDS ORDERED: ZOSYN 3.375 GM in NS 50 ML IV ONE (18:15)
[2019-12-08] MEDS ORDERED: ROCEPHIN 1 GM in NS 50 ML IV ONE (18:15)
--- NOTE | 2019-12-08 18:45 | PROVIDER DOCUMENTATION ---
This chart was entered by Nancy Peralta Scribe, acting as scribe for Cecilia Jose MD. HPI-Musculoskeletal Pain/Inj - GENERAL Source: patient - HX OF PRESENT ILLNESS-MUSKULOSKELTAL Quality of Pain: reports: aching, sharp Severity in ED: mild Onset/Duration: gradual Timing: still present, getting worse Locality of Occurance: Home Similar Symptoms Previously?: No Recently seen or treated by another doctor?: Yes - TRUNK INJURY Location of Injury(s)/Pain: reports: ribs (right) Context / Method of Injury: reports: none Associated Symptoms: reports: shortness of breath <Cecilia Jose - Last Filed: 12/08/19 18:45> <Madisyn Long - Last Filed: 12/08/19 21:30> - GENERAL Stated Complaint: difficulty breathing Time Seen by Provider: 12/08/19 17:59 - HX OF PRESENT ILLNESS-MUSKULOSKELTAL Nature of Presenting Problem: Patient is a 59 year old male who presents to the ED via EMS with right side rib pain. States shortness of breath with rib pain. Does not report injury to ribs. patient reports sob and pain in right side of chest on inspiration. states he was seen here yesterday and was sent home, reports he is worse today (Cecilia Jose) Review of Systems - Adult - REVIEW OF SYSTEMS - ADULT Constitutional: reports: no symptoms reported Eyes: reports: no symptoms reported Ears, Nose, Mouth & Throat: reports: no symptoms reported Cardiovascular: reports: no symptoms reported Respiratory: reports: see HPI, shortness of breath Gastrointestinal: reports: see HPI, abdominal pain Genitourinary: reports: no symptoms reported Musculoskeletal: reports: see HPI, other (right side rib pain) Integumentary: reports: no symptoms reported Neurological: reports: no symptoms reported Psychiatric: reports: no symptoms reported Endocrine: reports: no symptoms reported Hematologic/Lymphatic: reports: no symptoms reported Allergic/Immunologic: reports: no symptoms reported All Other Systems: Reviewed and Negative <Cecilia Jose - Last Filed: 12/08/19 18:45> Past History - Adult - PAST MEDICAL HISTORY-ADULT Review of Records: reports: Old Records Reviewed, Nursing Assessment Review, Medications Reviewed, Social history reviewed & non-contributory. Major Childhood Illnesses: reports: denies history Cardiovascular: reports: HTN, hyperlipidemia Respiratory: reports: sleep apnea Gastrointestinal: reports: GERD, liver disease, pancreatitis Obstetrical/Gynecological: reports: denies history Genitourinary: reports: kidney stones Musculoskeletal: reports: chronic pain (back) Neurological: reports: headaches/migraines Endocrine/Immune: reports: Diabetes Other Conditions: reports: denies history - PRIOR SURGERIES/PROCEDURES Surgical/Procedure History: reports: other (TRAUMATIC LEFT EYE INJURY, BLIND IN LEFT EYE, "SURGERY ON MY LIVER", "INJECTIONS FOR ABDOMEN PAIN THAT LAST ABOUT 6 MONTHS".) - PRIOR HOSPITALIZATIONS Prior Hospitalizations: reports: none - IMMUNIZATION STATUS Childhood Immunizations: See Nurse Assessment Flu Vaccine: See Nurse Assessment - FAMILY HISTORY Family History: reviewed, not pertinent - SOCIAL HISTORY Smoking: cigarettes (former) Substance Use: denies <Cecilia Jose - Last Filed: 12/08/19 18:45> Physical Exam-Injury Related - Physical Exam-Injury Related Initial Vital Signs Reviewed: Yes General Appearance: alert, moderate distress Eyes: PERRL/EOMI, pink conjunctivae Head, Ears, Nose, Mouth & Throat: normocephalic/atraumatic, moist mucous membranes Neck: non-tender, full range of motion, supple, normal inspection Respiratory: lungs clear, respiratory distress, pain on inspiration, rib tenderness (right lateral ribs), other (tachypnea) Cardiovascular: regular rate, rhythm, tachycardia Abdominal Exam: normal bowel sounds, soft, tenderness, other (RUQ pain) Extremity: normal inspection Integumentary: normal color, warm/dry Neurologic: grossly normal, no motor/sensory deficits Psych/Mental Status: normal mood/affect, normal thought content, normal thought process, oriented x 3 - Glascow Coma Score Best Eye Response (Sommer): (4) open spontaneously Best Verbal Response (Sommer): (5) oriented Best Motor Response ([place]): (6) obeys commands <Cecilia Jose - Last Filed: 12/08/19 18:45> Progress - PLAN OF CARE/RESULTS Result Diagrams: 12/08/19 18:21 - EKG 1 Time of EKG reading by physician:: 18:30 EKG Read and Signed by:: Cecilia Jose EKG Interpretation (*Must complete 3 of following elements*): Normal Rate: 128 Rhythm: sinus tachycardia Aromas: normal QRS: other (possible left atrial enlargement) MN Interval: normal ST Wave: normal - CHANGE OF SHIFT REPORT (ED Provider) 1 Report Given and Care Transferred to:: Dr Long Time of Transfer: 19:00 Items Pending: Labs, Ultrasound Results (admission pending) <Cecilia Jose - Last Filed: 12/08/19 18:45> - PLAN OF CARE/RESULTS Result Diagrams: 12/08/19 18:21 12/08/19 18:21 - CONSULTS/PCP/HOSPITALIST Notification #1 *Consult/PCP/Hospitalist*: Dr. Tejeda Time Discussed: 21:30 Consult Disposition: Admit <Madisyn Long - Last Filed: 12/08/19 21:30> - PLAN OF CARE/RESULTS Progress/Plan/Lab Results: Vital Signs - 8 hr 12/08/19 18:05 12/08/19 18:15 12/08/19 18:30 Temperature 102.5 F H Pulse Rate 133 H 124 H 127 H Respiratory Rate 24 32 H 48 H Blood Pressure 154/93 147/93 154/89 O2 Sat by Pulse Oximetry 95 88 L 90 L 12/08/19 18:45 12/08/19 19:00 12/08/19 19:15 Temperature Pulse Rate 131 H 120 H 106 H Respiratory Rate 24 42 H 34 H Blood Pressure 165/105 136/72 130/69 O2 Sat by Pulse Oximetry 94 L 95 98 12/08/19 19:30 12/08/19 19:45 12/08/19 20:00 Temperature Pulse Rate 100 H 100 H 96 H Respiratory Rate 34 H 31 H 31 H Blood Pressure 132/74 129/76 124/71 O2 Sat by Pulse Oximetry 96 100 96 12/08/19 20:15 12/08/19 20:36 Temperature 99.7 F H Pulse Rate 101 H 98 H Respiratory Rate 36 H 25 H Blood Pressure 129/75 111/65 O2 Sat by Pulse Oximetry 95 96 Laboratory Results - last 24 hr 12/08/19 12/08/19 12/08/19 18:21 18:21 18:21 WBC 11.60 H RBC 4.58 L Hgb 13.6 L Hct 40.5 L MCV 88.4 MCH 29.7 MCHC 33.6 RDW Std Deviation 14.6 H Plt Count 336 MPV 8.9 Immature Gran % (Auto) 0.3 Neut % (Auto) 73.2 Lymph % (Auto) 15.5 L [place] % (Auto) 10.9 H Eos % (Auto) 0.0 Baso % (Auto) 0.1 Immature Gran # (Auto) 0.03 Neut # (Auto) 8.50 H Lymph # (Auto) 1.80 [place] # (Auto) 1.26 H Eos # (Auto) 0.00 Baso # (Auto) 0.01 PT INR PTT (Actin FS) Sodium 131 L Potassium 3.7 D Chloride 96 L Carbon Dioxide 19 L Anion Gap 16 BUN 9 Creatinine 1.0 Estimated GFR/1.73 m2 > 60 BUN/Creatinine Ratio 9 Glucose 128 H Calculated Osmolality 263 Calcium 8.7 L Total Bilirubin 1.30 H AST 59 H ALT 57 H Alkaline Phosphatase 66 Creatine Kinase Troponin T High Sens Total Protein 7.9 Albumin 3.8 Globulin 4.0 Albumin/Globulin Ratio 1.0 Amylase 53 Lipase 21 Plasma Lactate Urine Source Urine Color Urine Turbidity Urine pH Ur Specific [place] Urine Protein Ur Glucose (Stick) Ur Ketones (Stick) Urine Blood Urine Nitrite Urine Bilirubin Urobilinogen Dipstick Urine Leukocytes Urine WBC (Auto) Urine RBC (Auto) U Epithel Cells (Auto) Urine Bacteria (Auto) Urine Crystals Small Round Cells Urine Casts Urine Yeast-like Cells Influenza A (Rapid) Influenza B (Rapid) Group A Strep Rapid 12/08/19 12/08/19 12/08/19 18:21 18:21 18:21 WBC RBC Hgb Hct MCV MCH MCHC RDW Std Deviation Plt Count MPV Immature Gran % (Auto) Neut % (Auto) Lymph % (Auto) [place] % (Auto) Eos % (Auto) Baso % (Auto) Immature Gran # (Auto) Neut # (Auto) Lymph # (Auto) [place] # (Auto) Eos # (Auto) Baso # (Auto) PT 15.5 INR 1.17 PTT (Actin FS) 37.1 Sodium Potassium Chloride Carbon Dioxide Anion Gap BUN Creatinine Estimated GFR/1.73 m2 BUN/Creatinine Ratio Glucose Calculated Osmolality Calcium Total Bilirubin AST ALT Alkaline Phosphatase Creatine Kinase 163 Troponin T High Sens 13 Total Protein Albumin Globulin Albumin/Globulin Ratio Amylase Lipase Plasma Lactate Urine Source Urine Color Urine Turbidity Urine pH Ur Specific [place] Urine Protein Ur Glucose (Stick) Ur Ketones (Stick) Urine Blood Urine Nitrite Urine Bilirubin Urobilinogen Dipstick Urine Leukocytes Urine WBC (Auto) Urine RBC (Auto) U Epithel Cells (Auto) Urine Bacteria (Auto) Urine Crystals Small Round Cells Urine Casts Urine Yeast-like Cells Influenza A (Rapid) Influenza B (Rapid) Group A Strep Rapid 12/08/19 12/08/19 12/08/19 18:21 18:35 18:35 WBC RBC Hgb Hct MCV MCH MCHC RDW Std Deviation Plt Count MPV Immature Gran % (Auto) Neut % (Auto) Lymph % (Auto) [place] % (Auto) Eos % (Auto) Baso % (Auto) Immature Gran # (Auto) Neut # (Auto) Lymph # (Auto) [place] # (Auto) Eos # (Auto) Baso # (Auto) PT INR PTT (Actin FS) Sodium Potassium Chloride Carbon Dioxide Anion Gap BUN Creatinine Estimated GFR/1.73 m2 BUN/Creatinine Ratio Glucose Calculated Osmolality Calcium Total Bilirubin AST ALT Alkaline Phosphatase Creatine Kinase Troponin T High Sens Total Protein Albumin Globulin Albumin/Globulin Ratio Amylase Lipase Plasma Lactate 0.8 Urine Source Urine Color Urine Turbidity Urine pH Ur Specific [place] Urine Protein Ur Glucose (Stick) Ur Ketones (Stick) Urine Blood Urine Nitrite Urine Bilirubin Urobilinogen Dipstick Urine Leukocytes Urine WBC (Auto) Urine RBC (Auto) U Epithel Cells (Auto) Urine Bacteria (Auto) Urine Crystals Small Round Cells Urine Casts Urine Yeast-like Cells Influenza A (Rapid) NEGATIVE Influenza B (Rapid) NEGATIVE Group A Strep Rapid NEGATIVE 12/08/19 19:04 WBC RBC Hgb Hct MCV MCH MCHC RDW Std Deviation Plt Count MPV Immature Gran % (Auto) Neut % (Auto) Lymph % (Auto) [place] % (Auto) Eos % (Auto) Baso % (Auto) Immature Gran # (Auto) Neut # (Auto) Lymph # (Auto) [place] # (Auto) Eos # (Auto) Baso # (Auto) PT INR PTT (Actin FS) Sodium Potassium Chloride Carbon Dioxide Anion Gap BUN Creatinine Estimated GFR/1.73 m2 BUN/Creatinine Ratio Glucose Calculated Osmolality Calcium Total Bilirubin AST ALT Alkaline Phosphatase Creatine Kinase Troponin T High Sens Total Protein Albumin Globulin Albumin/Globulin Ratio Amylase Lipase Plasma Lactate Urine Source CLEAN CATCH Urine Color YELLOW Urine Turbidity HAZY Urine pH 6.0 Ur Specific [place] 1.029 Urine Protein 100 A Ur Glucose (Stick) NEGATIVE Ur Ketones (Stick) TRACE A Urine Blood SMALL A Urine Nitrite NEGATIVE Urine Bilirubin SMALL A Urobilinogen Dipstick 8 A Urine Leukocytes SMALL A Urine WBC (Auto) 10-20 A Urine RBC (Auto) <10 U Epithel Cells (Auto) <10 Urine Bacteria (Auto) NEGATIVE Urine Crystals NONE SEEN Small Round Cells NONE SEEN Urine Casts NONE SEEN Urine Yeast-like Cells NONE SEEN Influenza A (Rapid) Influenza B (Rapid) Group A Strep Rapid Orders Category Date Time Status Cardiac Monitoring NOW Care 12/08/19 18:35 Active Graf Cath Insertion ORDERED Care 12/08/19 18:12 Active IV Insertion ORDERED Care 12/08/19 18:12 Active Intake and Output-Strict ORDERED Care 12/08/19 18:12 Active Isolation Precautions Setup NOW Care 12/08/19 19:09 Active NEWS Score >or=5:Order NEWS Bundle S.O. NOW Care 12/08/19 18:35 Active Notify Physician if: ORDERED Care 12/08/19 18:12 Active Notify Provider of NEWS Score NOW Care 12/08/19 18:35 Active Saline Loc DIRECTED Care 12/08/19 18:01 Active Vital Signs Order Q30M Care 12/08/19 18:12 Active NPO Diet 12/08/19 18:01 Active CHEST-PORTABLE [RAD] Stat Exams 12/08/19 18:09 Completed US GB < RUQ (LIMITED) [US] Stat Exams 12/08/19 18:15 Completed AMYLASE [CHEM] Stat Lab 12/08/19 18:21 Completed BLOOD CULTURE [BLDCUL] Stat Lab 12/08/19 18:35 Ordered CBC WITH ELECTRONIC DIFF [HEME] Stat Lab 12/08/19 18:21 Completed CK PROFILE [SP CHEM] Stat Lab 12/08/19 18:21 Completed COMPREHENSIVE METABOLIC PANEL [CHEM] Stat Lab 12/08/19 18:[address] Stat Lab 12/08/19 18:[address] Stat Lab 12/08/19 18:35 Completed LACTATE, PLASMA [CHEM] Lab 12/08/19 21:45 Uncollected LACTATE, PLASMA [CHEM] Lab 12/09/19 00:45 Uncollected LACTATE, PLASMA [CHEM] Stat Lab 12/08/19 18:21 Completed LIPASE [CHEM] Stat Lab 12/08/19 18:21 Completed PROTIME WITH INR [COAG] Stat Lab 12/08/19 18:21 Completed PTT [COAG] Stat Lab 12/08/19 18:21 Completed TROPONIN T HIGH SENSITIVITY Stat Lab 12/08/19 18:21 Completed URINALYSIS W/POSS RFLX CULT [URINALYSIS] Stat Lab 12/08/19 19:04 Completed URINE CULTURE [RM] Routine Lab 12/08/19 19:46 Ordered URINE MANUAL MICROSCOPIC [URINALYSIS] Stat Lab 12/08/19 19:04 Completed 0.9% Sodium Chloride Inj [Ns] 2,800 ml Med 12/08/19 18:12 Discontinued IV 999 mls/hr Acetaminophen [Tylenol] Med 12/08/19 18:46 Discontinued 1,000 mg PO NOW ONE CefTRIAXONE [Rocephin] 1 gm Med 12/08/19 18:15 Discontinued 0.9% Sodium Chloride Inj [Ns] 50 ml IV NOW Morphine Med 12/08/19 18:01 Discontinued 4 mg IV NOW ONE Ondansetron [Zofran] Med 12/08/19 18:02 Discontinued 4 mg IV NOW ONE Piperacillin/Tazobactam [Zosyn] 3.375 gm Med 12/08/19 18:15 Discontinued 0.9% Sodium Chloride Inj [Ns] 50 ml IV NOW O2 Per Protocol Stat Oth 12/08/19 18:35 Active Departure - Departure Date of Disposition Decision: 12/08/19 Certified Medical Emergency: Emergent - Critical Care Note This patient required my direct & personal management of CC.: Yes Total Time (mins): 35 Critical Care Statement: This patient required my direct personal management to treat or rule out processes, the absence of which, could potentiallly result in sudden, clinically significant life or limb threatening deterioration. <Cecilia Jose - Last Filed: 12/08/19 18:45> - Departure Time of Disposition Decision: 21:30 Certified Medical Emergency: Emergent - Critical Care Note This patient required my direct & personal management of CC.: Yes <Madisyn Long - Last Filed: 12/08/19 21:30> - Departure DIAGNOSIS: Pneumonia Disposition: ADMITTED INPATIENT 09 Condition: Critical Attestation - Physician/ YOVANNY Attestation Patient care was provided by Advanced Practice Provider:: No The physician spent face to face time with patient:: Yes Advanced Practice Provider documentation review:: Supervising physician onsite and consulted in the evaluation and care of this patient. The physician did have a face to face encounter with the patient. <Cecilia Jose - Last Filed: 12/08/19 18:45> - Physician/ YOVANNY Attestation Patient care was provided by Advanced Practice Provider:: No The physician spent face to face time with patient:: Yes Advanced Practice Provider documentation review:: Supervising physician onsite and consulted in the evaluation and care of this patient. The physician did have a face to face encounter with the patient. <Madisyn Long - Last Filed: 12/08/19 21:30> This chart was documented by the indicated scribe, (Nancy Peralta Scribe) and accurately reflects the services I performed and decisions made by , Cecilia Jose MD, as attested by the provider's signature.
[2019-12-08] MEDS ORDERED: TYLENOL PO ONE (18:46)
[2019-12-08 18:54] LABS: INR 1.17; PROTIME 15.5 Seconds (11.0-16.0)
[2019-12-08 18:55] LABS: PTT 37.1 Seconds (22.3-41.8)
--- NOTE | 2019-12-08 19:21 | Diag Imaging Result Doc PS360 ---
EXAM: CHEST-PORTABLE INDICATION: short of breath TECHNIQUE: One view COMPARISON: 10/21/2019 FINDINGS: Inspiration is suboptimal. There is a focal airspace consolidation at the left lung base suggesting pneumonia. There is probably also a component of atelectasis. There is subsegmental atelectasis at the right lung base as well. The cardiomediastinal silhouette and central vasculature are grossly unremarkable. IMPRESSION: Bibasilar subsegmental atelectasis and findings suspicious for superimposed pneumonia at the left lung base. Electronically signed by Kamari Childress 12/08/2019 7:18 PM
[2019-12-08 19:23] LABS: URINE SOURCE CLEAN CATCH
[2019-12-08 19:25] LABS: BILIRUBIN URINE SMALL (NEGATIVE); BLOOD URINE SMALL (NEGATIVE); COLOR YELLOW; GLUCOSE URINE NEGATIVE (NEGATIVE); KETONE URINE TRACE mg/dL (NEGATIVE); LEUKOCYTES URINE SMALL (NEGATIVE); NITRITE URINE NEGATIVE (NEGATIVE); PROTEIN URINE 100 mg/dL (NEGATIVE); SP GRAVITY URINE 1.029; TURBIDITY URINE HAZY (CLEAR); UROBILINOGEN URINE 8 mg/dL (NORMAL)
[2019-12-08 19:25] LABS: INFLUENZA A NEGATIVE (NEGATIVE); INFLUENZA B NEGATIVE (NEGATIVE)
[2019-12-08 19:30] LABS: AGAP 16; ALBUMIN 3.8 g/dL (3.5-5.0); ALKALINE PHOSPHATASE 66 U/L (32-122); BUN 9 mg/dL (8-22); CALCIUM 8.7 mg/dL (8.8-10.2); CHLORIDE 96 mmol/L (98-107); COSMO 263; ESTIMATED GFR > 60; GLUCOSE 128 mg/dL (70-104); GOT 59 U/L (10-34); GPT 57 U/L (10-44); LIPASE 21 U/L (13-60); POTASSIUM 3.7 mmol/L (3.5-5.1); SODIUM 131 mmol/L (136-145); TCO2 19 mmol/L (25-35); TOTAL PROTEIN 7.9 g/dL (6.3-8.3)
[2019-12-08 19:31] LABS: UR EPITHELIAL CELLS <10 /HPF (<10); URINE BACTERIA NEGATIVE /HPF; URINE RBC <10 /HPF (<10)
[2019-12-08 19:32] LABS: BASO# 0.01 X1000 (0.0-0.2); BASO% 0.1 % (0.0-0.8); HEMATOCRIT 40.5 % (42.0-52.0); HEMOGLOBIN 13.6 g/dL (14.0-18.0); IMM GRAN# 0.03 X1000 (0.0-0.04); IMM GRAN% 0.3 % (0.0-0.5); LYMPH% 15.5 % (20.5-51.1); MCH 29.7 PG (27-31); MCHC 33.6 g/dL (33-37); MCV 88.4 FL (81-99); MONO# 1.26 X1000 (0.11-0.59); MONO% 10.9 % (1.7-9.3); MPV 8.9 FL (7.4-10.4); NEUT% 73.2 % (42.2-75.2); PLT 336 X1000 (130-400); RBC 4.58 XMIL (4.7-6.1); RDW 14.6 % (11.5-14.5)
[2019-12-08 19:55] LABS: URINE CASTS NONE SEEN; URINE CRYSTALS NONE SEEN; URINE SMALL ROUND CELLS NONE SEEN; URINE YEAST NONE SEEN
--- NOTE | 2019-12-08 20:46 | Diag Imaging Result Doc PS360 ---
EXAM: US GB < RUQ (LIMITED) INDICATION: RUQ pain COMPARISON: 09/04/2016 FINDINGS: There is echogenic sludge layering in the lumen of the gallbladder. No definite shadowing stones are identified. No definite gallbladder wall thickening or pericholecystic fluid is identified. The common bile duct is normal in diameter. Sonographic Mckenzie's sign was reported to be negative. The liver echotexture is mildly increased suggesting hepatic steatosis. Portal venous flow is hepatopetal. The pancreas is obscured by bowel gas. The aorta and IVC are partially obscured. The visualized portions are unremarkable. The right kidney is grossly unremarkable. IMPRESSION: Echogenic sludge layering in the gallbladder lumen. No definite gallbladder wall thickening is appreciated. Electronically signed by Kamari Childress 12/08/2019 8:43 PM
[2019-12-08] MEDS ORDERED: ZOFRAN IV PRN (21:31)
[2019-12-08] MEDS ORDERED: VANCOMYCIN 1 GM/NS 1 GM/250 ML IVPB IV SCH (22:00)
[2019-12-09] MEDS: TYLENOL PO PRN (00:27)
--- NOTE | 2019-12-09 08:58 | Diag Imaging Result Doc PS360 ---
EXAM: CT THORAX W/CONTRAST HISTORY: SOB, PNA, COVID19 pending TECHNIQUE: Images were obtained from the lung apices through bases as per standard protocol. This exam was performed using automated exposure control, adjustment of mA or kV according to patient size, and/or use of iterative reconstruction technique. COMPARISON: CT abdomen and pelvis 12/07/2019 FINDINGS: Mediastinum: The heart size appears normal. No pericardial effusion is appreciated. No pathologically enlarged lymph nodes are identified. No aortic aneurysm. No hilar lymphadenopathy. Pulmonary parenchyma: There is dense consolidation of the bilateral lower lobes right greater than left with air bronchograms. Pleura: There are no pleural effusions. Bones: No fracture or destructive lesion is identified. Images of the abdomen reveal hepatic steatosis. There is a biliary stent. There is a 3 cm subcapsular fluid collection which was not present on the prior study. There is mild pericholecystic stranding. IMPRESSION: 1.Bibasilar pulmonary infiltrates. 2.Biliary stent with pericholecystic soft tissue stranding and 3 cm simple appearing subcapsular fluid collection. No rim enhancement. This may be secondary to stent leakage or inflammatory process. Correlate clinically. Electronically signed by Odilia Frias 12/09/2019 8:56 AM
[2019-12-09] MEDS ORDERED: VANCOMYCIN IV PER PHARMACY MISC SCH (10:00)
--- NOTE | 2019-12-09 10:36 | EKG Report ---
Test Performed on : 12/08/2019 6:30:52 PM Test Reason : ER Blood Pressure : / mmHG Vent. Rate : 128 BPM Atrial Rate : 128 BPM P-R Int : 130 ms QRS Dur : 084 ms QT Int : 304 ms P-R-T Axes : 038 -11 013 degrees QTc Int : 443 ms Sinus tachycardia. Possible Left atrial enlargement Borderline ECG When compared with ECG of 26-JUN-2018 15:33, Vent. rate has increased BY 43 BPM Unconfirmed Result
--- NOTE | 2019-12-09 11:03 | HISTORY AND PHYSICAL ---
PRIMARY CARE PHYSICIAN: None. PRIMARY GI DOCTOR: Dr. Aguila. CHIEF COMPLAINT: Shortness of breath. HISTORY OF PRESENT ILLNESS: This is a 59-year-old, -Iranian male with a past medical history of hypertension, chronic back pain, liver disease, and migraines, who presented to the emergency department complaining of shortness of breath that has been getting worse in the last 2 to 3 days. He had an ER visit yesterday and he was sent home. Today, he comes for the same complaint. Upon ER evaluation, he was found to be febrile with a temperature of 102.5 degrees, elevated white cell count, and an x-ray that was suspicious for pneumonia so he was admitted to the hospital. He reports no sick contacts. He lives with a roommate. He denies any cough, just shortness of breath. No runny nose or sore throat. He is going to be admitted for further evaluation and treatment. PAST MEDICAL HISTORY: 1. Hypertension. 2. Chronic back pain. 3. Liver disease. He does not remember exactly what it was. 4. Migraines. PAST SURGICAL HISTORY: Stent placement done in [facility] almost 5 years ago. He has not been seen there for a while. He has been seen by Dr. Agulia locally and the last time he had been seen was 1 year ago. He does not exactly remember for what diagnosis that he was a placed the stent. SOCIAL HISTORY: He reports quitting smoking 2 weeks ago. Before that, he was smoking a half a pack per day. He denies drinking any alcohol or using any illicit drugs. ALLERGIES: No known drug allergies. FAMILY HISTORY: Noncontributory. REVIEW OF SYSTEMS: Eleven systems were reviewed and all symptoms are related to H and P. PHYSICAL EXAMINATION: VITAL SIGNS: Temperature 99.6 degrees, heart rate 100, respiratory rate 20, blood pressure 137/81, O2 saturation 99% on room air. GENERAL EXAMINATION: This is a 59-year-old, -Iranian male, lying in bed, in no acute distress. HEENT: Head is normocephalic and atraumatic. NECK: No JVD noted. No carotid bruits. No lymphadenopathy. No thyromegaly. CARDIOVASCULAR EXAMINATION: S1 and S2 heard. No murmurs, gallops, or rubs. Regular rate and rhythm. RESPIRATORY EXAMINATION: Coarse breath sounds noted in both pulmonary smith. Patient is not using any accessory muscles or having work of breathing. ABDOMEN: Soft, nontender to palpation. Bowel sounds present. No organomegaly. EXTREMITIES: No clubbing, cyanosis, or edema. Peripheral pulses present in both legs. NEUROLOGICAL EXAMINATION: The patient is alert and oriented x3. Moves 4 extremities. LABORATORY DATA: White cell count 11.6, hemoglobin 13.6, hematocrit 40.5, platelets 336,000. Sodium 131, normal creatinine 1.3. AST 59, ALT 57. Troponins are negative. Chest CT showed bibasilar pulmonary infiltrates with biliary stent with pericholecystic soft- tissue stranding and a 3 cm simple-appearing subcapsular fluid collection but no ring enhancement. ASSESSMENT AND PLAN: 1. Acute respiratory failure secondary to bibasilar pneumonia. Patient has been admitted for this condition. The patient is going to be placed on broad-spectrum antibiotics with vancomycin and Zosyn. We will provide albuterol by MDI. Considering his symptoms of mostly short of breath but a very mild cough and other symptoms, the patient has been tested for Covid 19. He has been placed in isolation. We will monitor results of that test. We are going to use vancomycin and Zosyn for this condition. 2. For elevated liver function tests, we do not know exactly what condition he had but he had a stent placed almost 5 years ago in the biliary tree. I think, at this point, we are going to just monitor this patient closely. I do not think we need to call gastroenterology at this point. As mentioned before, we will continue to monitor this patient closely. We will keep him in isolation until the result of Covid 19 is back. cc: Den Simons MD [facility]
[2019-12-09] MEDS: HYDROCHLOROTHIAZIDE PO SCH (11:24)
[2019-12-09] MEDS: PRINIVIL PO SCH (11:24)
[2019-12-09] MEDS: NEURONTIN PO SCH ×4 (11:24→20:54)
[2019-12-09] MEDS: ZOSYN 3.375 GM in NS 50 ML IV SCH ×3 (11:25→21:05)
[2019-12-09] MEDS: FISH OIL CONCENTRATE PO SCH ×2 (11:25→20:54)
[2019-12-09 12:18] LABS: BASO# 0.01 X1000 (0.0-0.2); BASO% 0.1 % (0.0-0.8); EOS# 0.01 X1000 (0.0-0.7); EOS% 0.1 % (0.0-10.0); HEMATOCRIT 38.6 % (42.0-52.0); HEMOGLOBIN 12.8 g/dL (14.0-18.0); IMM GRAN# 0.03 X1000 (0.0-0.04); IMM GRAN% 0.2 % (0.0-0.5); LYMPH# 1.53 X1000 (1.2-3.4); LYMPH% 12.2 % (20.5-51.1); MCH 29.8 PG (27-31); MCHC 33.2 g/dL (33-37); MCV 89.8 FL (81-99); MONO# 0.96 X1000 (0.11-0.59); MONO% 7.7 % (1.7-9.3); MPV 8.8 FL (7.4-10.4); NEUT# 9.99 X1000 (1.4-6.5); NEUT% 79.7 % (42.2-75.2); PLT 348 X1000 (130-400); RDW 15.1 % (11.5-14.5); WBC 12.53 X1000 (4.8-10.8)
[2019-12-09 12:24] LABS: AGAP 10; BUN 9 mg/dL (8-22); CALCIUM 8.3 mg/dL (8.8-10.2); CHLORIDE 102 mmol/L (98-107); COSMO 273; ESTIMATED GFR > 60; GLUCOSE 101 mg/dL (70-104); POTASSIUM 3.9 mmol/L (3.5-5.1); SODIUM 137 mmol/L (136-145); TCO2 24 mmol/L (25-35)
[2019-12-09 15:18] LABS: LYMPHS 15 % (21-51); MONO 9 % (1-9); SEGS 76 % (42-75)
[2019-12-09] MEDS: MORPHINE IV PRN ×2 (18:29→22:21)
[2019-12-09] MEDS: ELAVIL PO SCH (20:54)
[2019-12-10] MEDS: ZOSYN 3.375 GM in NS 50 ML IV SCH ×4 (03:42→21:31)
[2019-12-10] MEDS: TYLENOL PO PRN ×3 (03:50→21:31)
[2019-12-10 06:08] LABS: AGAP 11; BUN 9 mg/dL (8-22); CALCIUM 8.2 mg/dL (8.8-10.2); CHLORIDE 98 mmol/L (98-107); COSMO 268; ESTIMATED GFR > 60; GLUCOSE 125 mg/dL (70-104); POTASSIUM 3.4 mmol/L (3.5-5.1); SODIUM 134 mmol/L (136-145); TCO2 25 mmol/L (25-35)
[2019-12-10 06:13] LABS: BASO# 0.02 X1000 (0.0-0.2); BASO% 0.1 % (0.0-0.8); EOS# 0.05 X1000 (0.0-0.7); EOS% 0.4 % (0.0-10.0); HEMATOCRIT 34.8 % (42.0-52.0); HEMOGLOBIN 11.5 g/dL (14.0-18.0); IMM GRAN# 0.04 X1000 (0.0-0.04); IMM GRAN% 0.3 % (0.0-0.5); LYMPH# 2.25 X1000 (1.2-3.4); LYMPH% 16.9 % (20.5-51.1); MCH 29.4 PG (27-31); MONO# 1.26 X1000 (0.11-0.59); MONO% 9.4 % (1.7-9.3); MPV 8.9 FL (7.4-10.4); NEUT# 9.72 X1000 (1.4-6.5); NEUT% 72.9 % (42.2-75.2); PLT 340 X1000 (130-400); RBC 3.91 XMIL (4.7-6.1); RDW 14.9 % (11.5-14.5); WBC 13.34 X1000 (4.8-10.8)
[2019-12-10] MEDS: MORPHINE IV PRN ×4 (06:29→19:47)
[2019-12-10 06:50] LABS: LYMPHS 17 % (21-51); SEGS 75 % (42-75)
[2019-12-10 06:51] LABS: MONO 8 % (1-9)
[2019-12-10] MEDS: VENTOLIN HFA INH PRN ×2 (08:22→15:34)
[2019-12-10] MEDS ORDERED: VANCOMYCIN 2,000 MG in NS 500 ML IV ONE (09:30)
[2019-12-10] MEDS: FISH OIL CONCENTRATE PO SCH ×2 (10:08→20:04)
[2019-12-10] MEDS: HYDROCHLOROTHIAZIDE PO SCH (10:09)
[2019-12-10] MEDS: PRINIVIL PO SCH (10:09)
[2019-12-10] MEDS: NEURONTIN PO SCH ×4 (10:10→20:04)
--- NOTE | 2019-12-10 10:18 | PROGRESS NOTE ---
DATE: 12/10/2019 SUBJECTIVE: Patient reports right-sided chest pain is getting better. Denies any fever or chills, shortness of breath is getting better. OBJECTIVE: Vital Signs: Temperature 98.6 degrees, heart rate 91, respiratory rate 18, blood pressure 110/67, O2 saturation 95% on 2 L nasal cannula. General: This is a 59-year-old male, lying in bed, in no acute distress. Cardiovascular: S1, S2 heard. No murmurs, gallops, or rubs. Regular rate and rhythm. Respiratory: Coarse breath sounds in both pulmonary smith unchanged in comparing with admission. Patient is not using any accessory muscles or having work of breathing. Abdomen: Soft, nontender to palpation. Bowel sounds present. No organomegaly. Extremities: No clubbing, cyanosis, or edema. Peripheral pulses present in both legs. Neurological: Patient is alert and oriented x3. Moves 4 extremities. LABORATORY DATA: Reviewed. ASSESSMENT AND PLAN: 1. Acute respiratory failure secondary to bibasilar pneumonia. Patient has been started on vancomycin and Zosyn. The patient was receiving albuterol by MDI as well. He has been receiving also pain medication for right-sided chest pain secondary to pneumonia. We will continue with the same management. He has spiked mild grade fever 100 a hours ago but overall he reports feeling better. At this point, we will continue with same medications. We are still waiting for the results of the Coronavirus Disease 2019 that this patient has been tested. 2. Elevated liver function tests. We will continue to monitor. No abdominal pain reported. cc: Den Simons MD
[2019-12-10] MEDS: ELAVIL PO SCH (20:04)
[2019-12-11] MEDS: VENTOLIN HFA INH PRN ×3 (03:00→15:30)
[2019-12-11] MEDS: ZOSYN 3.375 GM in NS 50 ML IV SCH ×3 (03:15→17:30)
[2019-12-11] MEDS: VANCOMYCIN 1,600 MG in NS 250 ML IV SCH ×2 (04:20→21:48)
[2019-12-11] MEDS: TYLENOL PO PRN (05:33)
[2019-12-11] MEDS: MORPHINE IV PRN (05:38)
[2019-12-11 06:00] LABS: BASO# 0.03 X1000 (0.0-0.2); BASO% 0.3 % (0.0-0.8); EOS# 0.08 X1000 (0.0-0.7); EOS% 0.7 % (0.0-10.0); HEMATOCRIT 34.7 % (42.0-52.0); HEMOGLOBIN 11.4 g/dL (14.0-18.0); IMM GRAN# 0.05 X1000 (0.0-0.04); IMM GRAN% 0.4 % (0.0-0.5); LYMPH% 15.9 % (20.5-51.1); MCH 29.2 PG (27-31); MCHC 32.9 g/dL (33-37); MONO# 1.36 X1000 (0.11-0.59); MONO% 11.4 % (1.7-9.3); MPV 9.1 FL (7.4-10.4); NEUT# 8.51 X1000 (1.4-6.5); NEUT% 71.3 % (42.2-75.2); PLT 392 X1000 (130-400); RDW 14.9 % (11.5-14.5); WBC 11.93 X1000 (4.8-10.8)
[2019-12-11 06:27] LABS: AGAP 13; BUN 11 mg/dL (8-22); CALCIUM 8.7 mg/dL (8.8-10.2); CHLORIDE 98 mmol/L (98-107); COSMO 270; CREATININE 0.9 mg/dL (0.7-1.2); ESTIMATED GFR > 60; GLUCOSE 108 mg/dL (70-104); POTASSIUM 3.6 mmol/L (3.5-5.1); SODIUM 135 mmol/L (136-145); TCO2 24 mmol/L (25-35)
[2019-12-11 07:47] LABS: LYMPHS 15 % (21-51); MONO 7 % (1-9); SEGS 78 % (42-75)
[2019-12-11] MEDS: FISH OIL CONCENTRATE PO SCH ×2 (09:32→20:27)
[2019-12-11] MEDS: PRINIVIL PO SCH (09:32)
[2019-12-11] MEDS: HYDROCHLOROTHIAZIDE PO SCH (09:32)
[2019-12-11] MEDS: NEURONTIN PO SCH ×4 (09:32→20:27)
--- NOTE | 2019-12-11 09:36 | EKG Report ---
Test Performed on : 12/10/2019 8:04:55 PM Test Reason : CP Blood Pressure : / mmHG Vent. Rate : 109 BPM Atrial Rate : 109 BPM P-R Int : 128 ms QRS Dur : 084 ms QT Int : 312 ms P-R-T Axes : 052 001 008 degrees QTc Int : 420 ms Sinus tachycardia. Otherwise normal ECG When compared with ECG of 08-DEC-2019 18:30, (Unconfirmed) No significant change was found Unconfirmed Result
--- NOTE | 2019-12-11 10:12 | PROGRESS NOTE ---
DATE: 12/11/2019 SUBJECTIVE: Patient notes he is still having significant pain on the right side of his chest when he takes in a good breath. OBJECTIVE: Vital signs: Temperature is 99.7, pulse 99, respiratory 20, BP 121/80, saturation 89 to 94 percent on 2 L. General: Patient is awake, pleasant. He is in minimal distress. HEENT: Normocephalic. Neck: Supple. Cardiovascular: Regular rate. Chest: Clear. Abdomen: Soft. Extremities: Moves all extremities. ASSESSMENT: 1. Bibasilar pneumonia. 2. Acute hypoxic respiratory failure, currently on oxygen. 3. Chest wall pain. 4. Mild leukocytosis. PLAN: We are going to stop his IV pain medications at this point. Certainly needs to consider taking oral pain medicine and will follow. Further orders as needed. We will continue vancomycin and Zosyn. cc: Sha Wilson MD
[2019-12-11] MEDS: NORCO-10 PO PRN ×2 (11:53→21:47)
[2019-12-11] MEDS ORDERED: NS 50 ML ONE (17:29)
[2019-12-11] MEDS: ELAVIL PO SCH (20:27)
[2019-12-12] MEDS: ZOSYN 3.375 GM in NS 50 ML IV SCH ×4 (01:21→21:14)
[2019-12-12] MEDS: VENTOLIN HFA INH PRN ×2 (03:05→15:35)
[2019-12-12 06:06] LABS: AGAP 11; BUN 12 mg/dL (8-22); CHLORIDE 94 mmol/L (98-107); COSMO 270; CREATININE 1.1 mg/dL (0.7-1.2); ESTIMATED GFR > 60; GLUCOSE 103 mg/dL (70-104); POTASSIUM 3.7 mmol/L (3.5-5.1); SODIUM 135 mmol/L (136-145); TCO2 30 mmol/L (25-35)
[2019-12-12 06:22] LABS: BASO# 0.06 X1000 (0.0-0.2); BASO% 0.5 % (0.0-0.8); EOS# 0.09 X1000 (0.0-0.7); EOS% 0.7 % (0.0-10.0); HEMATOCRIT 34.5 % (42.0-52.0); HEMOGLOBIN 11.2 g/dL (14.0-18.0); IMM GRAN# 0.09 X1000 (0.0-0.04); IMM GRAN% 0.7 % (0.0-0.5); LYMPH# 2.43 X1000 (1.2-3.4); LYMPH% 19.3 % (20.5-51.1); MCH 28.9 PG (27-31); MCHC 32.5 g/dL (33-37); MCV 89.1 FL (81-99); MONO# 1.52 X1000 (0.11-0.59); MONO% 12.1 % (1.7-9.3); MPV 8.8 FL (7.4-10.4); NEUT# 8.39 X1000 (1.4-6.5); NEUT% 66.7 % (42.2-75.2); PLT 436 X1000 (130-400); RBC 3.87 XMIL (4.7-6.1); RDW 14.9 % (11.5-14.5); WBC 12.58 X1000 (4.8-10.8)
[2019-12-12] MEDS: HYDROCHLOROTHIAZIDE PO SCH (08:49)
[2019-12-12] MEDS: FISH OIL CONCENTRATE PO SCH ×2 (08:49→21:14)
[2019-12-12] MEDS: PRINIVIL PO SCH (08:50)
[2019-12-12] MEDS: NEURONTIN PO SCH ×4 (08:50→21:13)
[2019-12-12] MEDS: NORCO-10 PO PRN (11:00)
[2019-12-12] MEDS: SOLU-MEDROL IV SCH ×2 (11:01→17:19)
--- NOTE | 2019-12-12 12:24 | Diag Imaging Result Doc PS360 ---
EXAM: CHEST-PORTABLE INDICATION: dyspnea TECHNIQUE: One view COMPARISON: 12/08/2019 FINDINGS: Inspiration is suboptimal similar to the previous study. There has been modest improvement of atelectasis +/- pneumonia at the lung bases. No new consolidation is identified. Cardiac silhouette is stable. IMPRESSION: Interval improvement as described. Electronically signed by Kamari Childress 12/12/2019 12:22 PM
[2019-12-12] MEDS ORDERED: NS 50 ML ONE (13:14)
--- NOTE | 2019-12-12 13:38 | PROGRESS NOTE ---
DATE: 12/12/2019 SUBJECTIVE: Patient notes that it hurts to breathe. Still having some cough, congestion. Denies fevers. Denies headaches, blurred vision. PHYSICAL EXAMINATION: Vital Signs: Reviewed, T-max 100.3 degrees, Temperature current 99 degrees, pulse 106, respiratory rate 24, BP 130/66. General: Patient is awake and alert. He has somewhat intentionally shallow breathing secondary to the pain with deep inspiration, therefore, he is panting more than taking a deep breath. HEENT: Normocephalic. Neck: Supple. Cardiovascular: Regular rate. Chest: Decreased breath sounds more so due to voluntarily decreasing his inspiratory effort. No appreciable crackles or wheezing. Abdomen: Soft, nondistended. Extremities: Moves all extremities. ASSESSMENT: 1. Bibasilar pneumonia. 2. Leukocytosis. White count is 12. 3. Febrile illness. 4. Dyspnea. PLAN: Discussed with patient that he has to start using incentive spirometry as well as Acapella treatments. Discussed he has to start breathing more deeply to get his pneumonia to clear up. Will continue antibiotics, [place] as needed, and will follow. His COVID-19 is still pending. cc: Sha Wilson MD
[2019-12-12] MEDS: VANCOMYCIN 1,600 MG in NS 250 ML IV SCH (16:34)
[2019-12-12] MEDS: DUONEB (A & A) INH PRN ×2 (19:56→23:45)
[2019-12-12] MEDS: ELAVIL PO SCH (21:14)
[2019-12-13] MEDS: NORCO-10 PO PRN ×2 (00:09→22:02)
[2019-12-13] MEDS: DUONEB (A & A) INH PRN ×2 (03:30→07:43)
[2019-12-13] MEDS: ZOSYN 3.375 GM in NS 50 ML IV SCH ×4 (03:33→21:54)
[2019-12-13] MEDS: SOLU-MEDROL IV SCH ×3 (03:33→18:06)
[2019-12-13] MEDS: VANCOMYCIN 1,600 MG in NS 250 ML IV SCH ×2 (03:38→16:27)
[2019-12-13 05:42] LABS: BASO# 0.07 X1000 (0.0-0.2); BASO% 0.4 % (0.0-0.8); EOS# 0.01 X1000 (0.0-0.7); EOS% 0.1 % (0.0-10.0); HEMATOCRIT 35.9 % (42.0-52.0); IMM GRAN# 0.09 X1000 (0.0-0.04); IMM GRAN% 0.6 % (0.0-0.5); LYMPH# 1.39 X1000 (1.2-3.4); LYMPH% 8.9 % (20.5-51.1); MCH 29.8 PG (27-31); MCHC 33.4 g/dL (33-37); MCV 89.1 FL (81-99); MONO# 0.85 X1000 (0.11-0.59); MONO% 5.4 % (1.7-9.3); MPV 8.7 FL (7.4-10.4); NEUT# 13.27 X1000 (1.4-6.5); NEUT% 84.6 % (42.2-75.2); PLT 531 X1000 (130-400); RBC 4.03 XMIL (4.7-6.1); RDW 15.1 % (11.5-14.5); WBC 15.68 X1000 (4.8-10.8)
[2019-12-13 05:54] LABS: AGAP 15; BUN 18 mg/dL (8-22); CALCIUM 9.4 mg/dL (8.8-10.2); CHLORIDE 97 mmol/L (98-107); COSMO 279; CREATININE 0.8 mg/dL (0.7-1.2); ESTIMATED GFR > 60; GLUCOSE 151 mg/dL (70-104); POTASSIUM 3.7 mmol/L (3.5-5.1); SODIUM 137 mmol/L (136-145); TCO2 25 mmol/L (25-35)
[2019-12-13 05:57] LABS: BANDS 1 % (0-1); HYPOCHROM OCCASIONAL; LYMPHS 9 % (21-51); MONO 1 % (1-9); POLYCHROM OCCASIONAL; SEGS 89 % (42-75)
[2019-12-13 05:58] LABS: LARGE PLATELETS OCCASIONAL; POIKILOCYTOSIS 1+; TARGET CELLS OCCASIONAL
[2019-12-13 05:59] LABS: STOMATOCYTES OCCASIONAL
[2019-12-13] MEDS: PRINIVIL PO SCH (08:09)
[2019-12-13] MEDS: NEURONTIN PO SCH ×4 (08:09→21:53)
[2019-12-13] MEDS: HYDROCHLOROTHIAZIDE PO SCH (08:09)
[2019-12-13] MEDS: FISH OIL CONCENTRATE PO SCH ×2 (08:09→21:54)
[2019-12-13] MEDS: DUONEB (A & A) INH SCH ×5 (10:06→23:18)
[2019-12-13] MEDS ORDERED: LEVAQUIN 750 MG/D5W 750 MG/150 ML IVPB IV SCH (10:30)
[2019-12-13] MEDS ORDERED: MUCOMYST 20% INH SCH (10:30)
--- NOTE | 2019-12-13 10:44 | PROGRESS NOTE ---
DATE: 12/13/2019 SUBJECTIVE: The patient continues to have right-sided chest pain. He continues to be short of breath despite treatment that he is receiving. Denies any other complaints. OBJECTIVE: Vital Signs: Temperature 97.3 degrees, heart rate 87, respiratory rate 20, blood pressure 137/76, O2 saturation 92% on Venturi mask. General Examination: This is a 59-year-old, -[place]ian male, lying in bed, in no acute distress. Cardiovascular Examination: S1 and S2 heard. No murmurs, gallops, or rubs. Regular rate and rhythm. Respiratory Examination: Coarse breath sounds noted in both pulmonary smith, as well as mild wheezing. Patient is not using any accessory muscles or having work of breathing. Abdomen: Soft, nontender to palpation. Bowel sounds present. No organomegaly. Extremities: No clubbing, cyanosis, or edema. Peripheral pulses present in both legs. Neurological Examination: The patient is alert and oriented x3. Moves 4 extremities. Laboratory Data: White cell count is 15.68, hemoglobin 12.0, hematocrit 35.9, platelets 531,000, with a normal BMP. ASSESSMENT AND PLAN: 1. Acute respiratory failure secondary to bibasilar pneumonia. Patient continues to require a high amount of oxygen; in this case, oxygen by Venturi mask. The patient has been started, since admission, with vancomycin and Zosyn. We are going to add Levaquin for coverage of atypical bacteria. Considering that this patient is still short of breath after being in the hospital for 5 days, I would prefer to transfer him to [facility] to have an evaluation by the pulmonary doctor on-call home. Patient, since today, is going to receive albuterol and Atrovent for a nebulized machine. The patient is on steroids 60 mg intravenously every 8 hours of methylprednisolone which explained why this patient has an elevated white cell count. Regarding fever, he has been spiking fever the last time yesterday morning at 100.3. Considering his worsening shortness of breath, I will check a CT angiogram of the thorax to rule out any pulmonary embolism. 2. Elevated liver function tests. Patient had a stent placed at [facility] almost 5 years ago. He has been seen by Dr. Aguila in the office, almost a year ago. At this point, we will continue to monitor. 3. Disposition. As we mentioned before, we will transfer this patient to [facility]. We will do a CT angiogram of the chest and we will follow results. cc: Den Simons MD
--- NOTE | 2019-12-13 13:11 | Diag Imaging Result Doc PS360 ---
EXAM: CT ANGIOGRM PULMONARY ARTERIES INDICATION: worsening sob, PE suspected TECHNIQUE: This exam was performed using automated exposure control, adjustment of mA or kV according to patient size, and/or use of iterative reconstruction technique. Thin section axial images and 3-D MIPS were obtained. COMPARISON: 12/09/2019 FINDINGS: The pulmonary artery contrast bolus is slightly suboptimal. However, there are no discrete filling defects identified to indicate pulmonary embolism. There is no evidence of aortic dissection or aneurysm. There is no cardiomegaly. There is no evidence of significant mediastinal or hilar lymphadenopathy. There are a few calcified right hilar lymph nodes indicating prior granulomatous disease. There is persistent dense consolidation at both lung bases mainly involving the lower lobes. It is worse on the right. Overall, the consolidations have worsened slightly. There is also probably a component of atelectasis as well. There is trace pleural fluid on the right. There is no pneumothorax. Limited views of the upper abdomen reveals a stable biliary stent and stable mild pericholecystic stranding. IMPRESSION: 1.Dense bibasilar airspace infiltrates that are slightly worse than the previous study. 2.Trace right effusion. 3.No evidence of pulmonary embolism. 4.Stable pericholecystic inflammatory stranding. Electronically signed by Kamari Childress 12/13/2019 1:08 PM
[2019-12-13] MEDS ORDERED: TYLENOL PO PRN (14:14)
[2019-12-13] MEDS ORDERED: VANCOMYCIN IV PER PHARMACY MISC SCH (14:15)
[2019-12-13] MEDS ORDERED: ZOFRAN IV PRN (14:15)
[2019-12-13] MEDS: MUCOMYST 20% INH SCH (19:57)
--- NOTE | 2019-12-13 20:57 | PULMONOLOGY CONSULTATION ---
DATE: 12/13/2019 CONSULTING PHYSICIAN: Dr. Den Tejeda REASON FOR CONSULT: Shortness of breath. HISTORY OF PRESENT ILLNESS: This is a 59-year-old gentleman with a history of hypertension, hyperlipidemia, chronic pancreatitis with pancreatic mass status post stent placement in July 2016 at [facility] with no followup reported at [facility]. He was admitted at [facility] on December 08 in acute respiratory failure secondary to bibasilar pneumonia. He was placed on vancomycin and Zosyn at that time. He was also tested for COVID 19, which has returned negative. As he has continued to be short of breath requiring O2 per Ventimask, Dr. Tejeda has transferred the patient to [facility] for pulmonary consult. PAST MEDICAL HISTORY: 1. Hyperlipidemia. 2. Hypertension. 3. Pancreatic mass, status post common duct stent placement in July 2016 at [facility]. 4. Hyperlipidemia. 5. Chronic low back pain. 6. 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 7. Chronic pancreatitis. PAST SURGICAL HISTORY: 1. Left eye surgery at age 13. 2. Common bile duct stent placement. SOCIAL HISTORY: He smokes cigarettes occasionally. He denies alcohol or illicit drug use. FAMILY HISTORY: Positive for diabetes type 2, heart disease and hypertension. ALLERGIES: No reported allergies. HOME MEDICATIONS: A list will be obtained by the nursing staff and once verified and reviewed will restart as appropriate. REVIEW OF SYSTEMS: Discussed with the patient with pertinent positives stated. PHYSICAL EXAMINATION: General: This is a 59-year-old gentleman who is sitting up on the bed in no distress. Vital Signs: Blood pressure is 135/77 with a heart rate of 90, respirations are 20, temperature is 97.6 degrees with O2 saturations that are 98% on a non- rebreather. Eyes: Pupils are equal, round, react to light. EOMs are intact. Sclerae are anicteric. HEENT: Head is normocephalic, atraumatic. Mucous membranes are moist. Neck: Supple. Trachea midline. Cardiovascular: Regular rate and rhythm. S1 and S2 appreciated. No murmur. Pulmonary: Breath sounds are diminished throughout. He does have some faint expiratory wheezes in posterior right side. Chest rises and falls symmetric with respiration. Gastrointestinal: Abdomen is soft, nontender, nondistended with bowel sounds in all 4 quadrants. Neurologic: He is alert and oriented x3. Skin: Warm and dry. LABORATORY DATA: WBC is 15.6 with hemoglobin 12, hematocrit 35.9, and platelets of 531,000. Sodium 137, potassium 3.7, BUN 18, creatinine 0.[address] of the chest on December 08 revealed bibasilar pulmonary infiltrates. Chest x-ray reports interval improvement with no new consolidation. IMPRESSION: This is a 59-year-old gentleman with acute respiratory failure secondary to bibasilar pneumonia. 1. Acute hypoxemic respiratory failure. Continue supplemental oxygen, wean as appropriate DuoNeb q.4 hours, Acapella, incentive spirometer every 4 hours. 2. Bibasilar pneumonia. Blood cultures were negative. Continue Levaquin, vancomycin and Zosyn. Continue steroids q.8 hours. 3. Gastric acid suppression with Protonix. Thank you for allowing us participate in this patient's care. Dictated by ERIKA Wilks for Francisco Marie MD cc: ERIKA Wilks MD [facility]
[2019-12-13] MEDS: ELAVIL PO SCH (21:54)
[2019-12-14] MEDS: SOLU-MEDROL IV SCH ×2 (02:42→09:25)
[2019-12-14] MEDS: ZOSYN 3.375 GM in NS 50 ML IV SCH ×4 (02:42→20:23)
[2019-12-14] MEDS: VANCOMYCIN 1,600 MG in NS 250 ML IV SCH ×2 (03:20→17:07)
[2019-12-14] MEDS: DUONEB (A & A) INH SCH ×6 (03:38→23:04)
[2019-12-14 06:57] LABS: AGAP 12; BUN 22 mg/dL (8-22); CALCIUM 9.7 mg/dL (8.8-10.2); CHLORIDE 99 mmol/L (98-107); COSMO 281; CREATININE 0.9 mg/dL (0.7-1.2); ESTIMATED GFR > 60; GLUCOSE 126 mg/dL (70-104); POTASSIUM 4.6 mmol/L (3.5-5.1); SODIUM 138 mmol/L (136-145); TCO2 27 mmol/L (25-35)
[2019-12-14 07:05] LABS: BASO# 0.08 X1000 (0.0-0.2); BASO% 0.4 % (0.0-0.8); HEMATOCRIT 36.2 % (42.0-52.0); HEMOGLOBIN 11.7 g/dL (14.0-18.0); IMM GRAN# 0.32 X1000 (0.0-0.04); IMM GRAN% 1.4 % (0.0-0.5); LYMPH# 1.76 X1000 (1.2-3.4); LYMPH% 7.8 % (20.5-51.1); MCHC 32.3 g/dL (33-37); MCV 89.8 FL (81-99); MONO# 1.91 X1000 (0.11-0.59); MONO% 8.5 % (1.7-9.3); MPV 8.8 FL (7.4-10.4); NEUT# 18.37 X1000 (1.4-6.5); NEUT% 81.9 % (42.2-75.2); PLT 606 X1000 (130-400); RBC 4.03 XMIL (4.7-6.1); RDW 15.5 % (11.5-14.5); WBC 22.44 X1000 (4.8-10.8)
[2019-12-14] MEDS: MUCOMYST 20% INH SCH ×2 (07:54→19:39)
[2019-12-14 07:56] LABS: BANDS 6 % (0-1); LYMPHS 4 % (21-51); MONO 2 % (1-9); SEGS 86 % (42-75)
[2019-12-14 07:57] LABS: HYPOCHROM 1+
[2019-12-14] MEDS: NEURONTIN PO SCH ×2 (09:19→12:35)
[2019-12-14] MEDS: HYDROCHLOROTHIAZIDE PO SCH (09:21)
[2019-12-14] MEDS: NORCO-10 PO PRN ×2 (09:21→17:07)
[2019-12-14] MEDS: PRINIVIL PO SCH (09:22)
[2019-12-14] MEDS: FISH OIL CONCENTRATE PO SCH ×2 (09:23→20:24)
[2019-12-14] MEDS: LEVAQUIN 750 MG/D5W 750 MG/150 ML IVPB IV SCH (12:34)
--- NOTE | 2019-12-14 16:37 | PROGRESS NOTE ---
DATE: 12/14/2019 INTERVAL HISTORY: Mr. Anthony was transferred from [facility] to [facility] overnight for his acute hypoxic respiratory failure. SUBJECTIVE: Mr. Anthony appears short of breath. He denies any chest discomfort, nausea, vomiting. He has not had any bowel movement. REVIEW OF SYSTEMS: Positive for chest discomfort, occasional cough and shortness of breath. VITALS: Temperature 98 degrees, pulse 97, respiratory 18, blood pressure 132/71, he is saturating 95% on 100% nonrebreather mask. PHYSICAL EXAMINATION: Well-built man in mild distress because of shortness of breath. Oral cavity is moist. Air entry bilaterally equal. No wheeze or rhonchi. He had decreased air entry with inspiratory crackles bilateral infrascapular region. S1, S2 normal. No murmur or gallop.Abdomen: Soft, nontender. Mild right upper quadrant tenderness. No lower extremity edema. He is alert and oriented x3. LABS: Suggestive of WBC of 22,000, hemoglobin 11.7, platelet 606,000. He has a BUN of 22, creatinine 0.9. No positive microbiological data so far. His influenza screen and COVID-19 screen were negative. ASSESSMENT AND PLAN: 1. Sepsis and acute hypoxic respiratory failure due to bilateral lower lobe pneumonia. Follow up urine antigen. The patient has not been able to make sputum. His influenza, COVID-19 test were negative. Blood cultures were also negative. Continue broad-spectrum intravenous vancomycin, intravenous Zosyn and intravenous levofloxacin. Continue oxygen to nonrebreather mask. Pulmonology team has been consulted. Appreciate further recommendations. His CT scan of the chest did not have any pulmonary embolism. 2. Transaminitis on admission. The patient had some sort of stent placed at the [facility] 5 years ago and was seeing Dr. Aguila in the office. On admission abdomen ultrasound had echogenic sludge in the gallbladder without any gallbladder wall thickening. He would need outpatient followup. He also had hepatic steatosis. 3. History of essential hypertension currently normotensive. I will continue his home antihypertensive medications as tolerated. 4. Others. I will start patient on pantoprazole for stress ulcer prophylaxis. I will start him on enoxaparin for DVT prophylaxis. Considering he is not wheezing, I am stopping his intravenous steroids. Continue monitor patient in [facility]. Plan of care discussed with him, his questions been answered. cc: Francisco J Eckert MD
[2019-12-14] MEDS: SODIUM CHLORIDE 0.9% INJ SCH (17:15)
[2019-12-14] MEDS: PROTONIX IV SCH (17:15)
[2019-12-14] MEDS: LOVENOX SUBQ SCH (17:57)
[2019-12-14] MEDS: ELAVIL PO SCH (20:24)
[2019-12-14] MEDS: DULCOLAX PR SCH (20:24)
--- NOTE | 2019-12-14 23:03 | PULMONOLOGY PROGRESS NOTE ---
DATE: 12/14/2019 SUBJECTIVE: The patient is awake and alert. He has a marginal cough effort. He does report eating late at night before going to bed. OBJECTIVE: Vital Signs: He has been afebrile for the last 24 hours. BP 127/72, heart rate 87, respiratory rate 19, oxygen saturation 98%. HEENT: Pupils are equal and reactive. Oropharynx appears clear. Neck: Supple. Chest: Egophony with E to A changes at the right base and crackles at the left base. Cardiac exam: S1 and S2. Abdomen: Obese and soft. Extremities: Without edema. LABORATORIES: Microbiology reveals no new data. White blood count remains elevated at 22,000. IMPRESSION: A 59 year old with: 1. Bibasilar pneumonia due to aspiration. 2. Acute hypoxemic respiratory failure. 3. Pleuritic chest pain. PLAN: 1. Continue current antibiotic regimen. 2. Strongly encourage patient to get out of bed and be mobilized. 3. Strongly encourage patient to initiate and maintain incentive spirometry. 4. Follow up chest x-ray in 2 to 3 days. cc: Francisco Marie MD
[2019-12-15] MEDS: NORCO-10 PO PRN ×2 (01:16→20:43)
[2019-12-15] MEDS: ZOSYN 3.375 GM in NS 50 ML IV SCH ×4 (03:09→20:34)
[2019-12-15] MEDS: DUONEB (A & A) INH SCH ×6 (03:36→23:18)
[2019-12-15] MEDS: VANCOMYCIN 1,600 MG in NS 250 ML IV SCH ×2 (04:09→22:29)
[2019-12-15] MEDS ORDERED: LASIX IV ONE (06:00)
[2019-12-15 07:07] LABS: AGAP 17; ALB/GLOB RATIO 1.1; ALBUMIN 3.1 g/dL (3.5-5.0); ALKALINE PHOSPHATASE 81 U/L (32-122); BUN 22 mg/dL (8-22); CALCIUM 8.9 mg/dL (8.8-10.2); CHLORIDE 98 mmol/L (98-107); COSMO 282; ESTIMATED GFR > 60; GLUCOSE 85 mg/dL (70-104); GOT 46 U/L (10-34); GPT 80 U/L (10-44); POTASSIUM 4.7 mmol/L (3.5-5.1); SODIUM 140 mmol/L (136-145); TCO2 25 mmol/L (25-35); TOTAL BILIRUBIN 0.46 mg/dL (0.20-1.00); TOTAL PROTEIN 5.9 g/dL (6.3-8.3)
--- NOTE | 2019-12-15 07:37 | Diag Imaging Result Doc PS360 ---
EXAM: KUB ABDOMEN INDICATION: distention and aspiration TECHNIQUE: One view COMPARISON: 12/10/2016 FINDINGS: There is mild gaseous distention of the distal transverse colon and there is a small bowel within the left upper quadrant containing gas but very little distention. This is nonspecific there is nothing that would necessarily indicate obstruction. There is still possible mild constipation. No large volume free abdominal gas is identified. IMPRESSION: Nonspecific abdomen. Electronically signed by Kamari Childress 12/15/2019 7:35 AM
--- NOTE | 2019-12-15 07:39 | Diag Imaging Result Doc PS360 ---
EXAM: CHEST-PORTABLE INDICATION: abnormal exam TECHNIQUE: One view COMPARISON: 12/12/2019 FINDINGS: Inspiration is suboptimal similar to the previous study. There is still mild atelectasis +/- infiltrate at the lung bases that is essentially stable as compared to the previous study. No new consolidation is identified. Cardiac silhouette is stable. IMPRESSION: Essentially stable chest. Electronically signed by Kamari Childress 12/15/2019 7:37 AM
[2019-12-15] MEDS: MUCOMYST 20% INH SCH ×2 (07:54→19:54)
[2019-12-15] MEDS: MIRALAX PO SCH (09:38)
[2019-12-15] MEDS: FISH OIL CONCENTRATE PO SCH ×2 (09:39→20:33)
[2019-12-15] MEDS: PRINIVIL PO SCH (09:39)
[2019-12-15] MEDS: HYDROCHLOROTHIAZIDE PO SCH (09:39)
[2019-12-15] MEDS: LEVAQUIN 750 MG/D5W 750 MG/150 ML IVPB IV SCH (11:34)
--- NOTE | 2019-12-15 12:34 | PROGRESS NOTE ---
DATE: 12/15/2019 SUBJECTIVE: Mr. Anthony refers to be feeling okay, still has some shortness of breath and is still on a Venturi mask. OBJECTIVE: Vital signs: Blood pressure is 135/67, pulse of 85, respirations 17, temperature 98.7 degrees. General: Mr. Anthony is a 59-year-old gentleman. He is in bed, in no distress. HEENT: Mucosa is pink and moist. Anicteric. Acyanotic. Neck: Supple. Chest: Air entry is bilaterally reduced. There are still a few crackles in the posterior lung smith. Cardiovascular: Regular rate and rhythm GI: The abdomen is soft, nontender. Bowel sounds present. Extremities: No pedal edema. PATENT EXAMINER: The patient is awake, alert, and oriented. There is no focal deficit. LABORATORY DATA: No CBC for this morning. Chemistry is also reviewed. ALT and AST are moderately elevated. IMAGING STUDIES: A chest x-ray this morning shows still mild atelectasis, plasma and infiltrates in the lung bases. No new consolidation. ASSESSMENT: 1. Acute hypoxemic respiratory failure secondary to bilateral lower lobe pneumonia, questionable for aspiration. 2. Sepsis secondary to aspiration pneumonia. 3. Transaminitis. 4. Hypertension. 5. Poor dentition. Advised to follow up on dental care. PLAN: In general, I think Mr. Anthony continues to be symptomatic from a respiratory standpoint. He is still needing Venturi mask to saturate adequately. We are going to continue with the current management. We appreciate Pulmonary Medicine recommendations. cc: Dg Ratliff MD MTDD
[2019-12-15] MEDS: DULCOLAX PR SCH ×2 (17:05→20:34)
[2019-12-15] MEDS: SODIUM CHLORIDE 0.9% INJ SCH (17:07)
[2019-12-15] MEDS: PROTONIX IV SCH (17:07)
[2019-12-15] MEDS: LOVENOX SUBQ SCH (17:08)
--- NOTE | 2019-12-15 19:59 | PULMONOLOGY PROGRESS NOTE ---
DATE: 12/15/2019 SUBJECTIVE: The patient is awake and alert. He reports he has a good cough effort. He is on a Venturi mask. OBJECTIVE: Vital Signs: He has been afebrile for the last 24 hours. HEENT: Pupils are equal and reactive. Oropharynx is clear. Neck: Supple. Chest: Reveals crackles in both lung bases with significantly decreased breath sounds in the right greater than left base. IMAGING: Chest x-ray, no changes in bibasilar infiltrates. Sputum culture is pending. IMPRESSION: A 59-year-old with: 1. Aspiration leading to bibasilar pneumonia. 2. Acute hypoxemic respiratory failure. 3. Pleuritic chest pain. DISCUSSION: A 59-year-old with the problems outlined above. The patient continues to improve and oxygen requirements are decreasing. PLAN: 1. Continue to promote bronchial hygiene. 2. Continue current antibiotic regimen. 3. Encourage reflux precautions. cc: Francisco Marie MD
[2019-12-15] MEDS: ELAVIL PO SCH (20:33)
[2019-12-16] MEDS: DUONEB (A & A) INH SCH ×6 (03:41→23:55)
[2019-12-16] MEDS: ZOSYN 3.375 GM in NS 50 ML IV SCH ×4 (03:44→21:14)
[2019-12-16 06:12] LABS: AGAP 12; ALBUMIN 3.2 g/dL (3.5-5.0); BUN 24 mg/dL (8-22); CALCIUM 9.1 mg/dL (8.8-10.2); CHLORIDE 98 mmol/L (98-107); COSMO 279; CREATININE 1.1 mg/dL (0.7-1.2); ESTIMATED GFR > 60; GLUCOSE 93 mg/dL (70-104); PHOSPHORUS 4.6 mg/dL (2.7-4.5); POTASSIUM 4.2 mmol/L (3.5-5.1); SODIUM 138 mmol/L (136-145); TCO2 28 mmol/L (25-35)
[2019-12-16 06:13] LABS: EOS# 0.11 X1000 (0.0-0.7); EOS% 0.7 % (0.0-10.0); HEMATOCRIT 39.9 % (42.0-52.0); HEMOGLOBIN 12.9 g/dL (14.0-18.0); LYMPH# 5.34 X1000 (1.2-3.4); LYMPH% 32.1 % (20.5-51.1); MCH 29.4 PG (27-31); MCHC 32.3 g/dL (33-37); MCV 90.9 FL (81-99); MONO# 1.97 X1000 (0.11-0.59); MONO% 11.8 % (1.7-9.3); MPV 8.4 FL (7.4-10.4); PLT 692 X1000 (130-400); RBC 4.39 XMIL (4.7-6.1); WBC 16.64 X1000 (4.8-10.8)
[2019-12-16] MEDS: MUCOMYST 20% INH SCH ×2 (07:38→19:58)
[2019-12-16] MEDS: MIRALAX PO SCH (08:37)
[2019-12-16] MEDS: FISH OIL CONCENTRATE PO SCH ×2 (08:38→21:13)
[2019-12-16] MEDS: HYDROCHLOROTHIAZIDE PO SCH (08:38)
[2019-12-16] MEDS: PRINIVIL PO SCH (08:39)
[2019-12-16] MEDS: DULCOLAX PR SCH ×2 (08:40→21:13)
--- NOTE | 2019-12-16 10:12 | PROGRESS NOTE ---
DATE: 12/16/2019 SUBJECTIVE: This morning, Mr. Anthony refers to be doing a lot better. He was actually sitting at the edge of the bed. He is still on a Venturi mask, but he is down to 7 L and he is saturating well. He denies any cough or any fever. OBJECTIVE: Vital signs: Current vitals, blood pressure is 102/70, pulse of 95, respiration is 21, temperature 97.9 degrees, the patient is saturating about 95 on a Venturi mask. General: Mr. Anthony is a 59-year-old - [place] gentleman. He was sitting at the edge of the bed. He did not seems to be in any respiratory distress. HEENT: Mucosa is pink and moist. Anicteric. Acyanotic. Neck: Supple. Chest: Air entry was bilaterally reduced, some end- expiratory rhonchi, but no wheezing, no crackles. Cardiovascular: Regular rate and rhythm. No murmurs, no rubs, no gallops. GI: Abdomen was soft, nontender. Bowel sound was present. There was no hepatosplenomegaly palpated. Extremities: No pedal edema. DIRECTOR OF MANUFACTURING OPERATIONS: The patient is awake, alert, oriented. No focal deficit. 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 LABORATORY DATA: WBC is down to 16.64, hemoglobin is 12.9, platelet count of 692,000. Chemistry is also reviewed, is completely unremarkable. So far, microbiology data have been unremarkable. No recent imaging studies. MEDICATIONS: The patient's medications have all been reviewed. The list includes: 1. Tylenol p.r.n. 2. Mucomyst p.r.n. 3. DuoNebs p.r.n. 4. Amitriptyline 25 mg p.o. at bedtime. 5. Dulcolax 10 mg p.r. b.i.d. 6. Lovenox 40 mg subcutaneously q.24. 7. Hydrochlorothiazide 25 mg p.o. daily. 8. Levaquin 750 IV q.24, today is day 2 on that. 9. Lisinopril 20 mg p.o. daily. 10. Vancomycin per Pharmacy protocol. 11. Pantoprazole 40 mg q.12. 12. Zosyn 3.375 every 6 hours, today is day 3. ASSESSMENT: 1. Acute hypoxemic respiratory failure secondary to bilateral lower lobe pneumonia, questionable for aspiration pneumonitis. The patient is on antimicrobial coverage and we plan to continue this for a total of 7 to 10 days depending on his clinical course. 2. Patient also continues to be on supplemental oxygen. He is being titrated down. He is currently on 7 L of supplemental oxygen via Venturi mask. 3. Sepsis on presentation secondary to aspiration pneumonia, improved. 4. Transaminitis. 5. Hypertension, controlled. 6. Poor dentition. Patient has been advised to follow up with dental care. PLAN: In general, I think Mr. Anthony is doing well. Oxygen level continues to be weaning down. We are going to transfer him from the critical care unit to the Medical floor. We will continue with the current management plan and also get Physical Therapy to start working with him. Plan has been discussed with Mr. Anthony. cc: Dg Ratliff MD MTDD
[2019-12-16] MEDS: LEVAQUIN 750 MG/D5W 750 MG/150 ML IVPB IV SCH (11:46)
[2019-12-16] MEDS: SODIUM CHLORIDE 0.9% INJ SCH (15:49)
[2019-12-16] MEDS: PROTONIX IV SCH (15:49)
[2019-12-16] MEDS: VANCOMYCIN 1,600 MG in NS 250 ML IV SCH (17:05)
[2019-12-16] MEDS: LOVENOX SUBQ SCH (17:06)
--- NOTE | 2019-12-16 19:26 | PULMONOLOGY PROGRESS NOTE ---
DATE: 12/16/2019 SUBJECTIVE: The patient is awake, alert, and conversant. He reports his incentive spirometry has increased to 1500. He has minimal sputum production. His oxygen requirements continue to decrease, and he is now on 3 L per nasal cannula. OBJECTIVE: HEENT: Pupils are equal and reactive. Oropharynx appears clear. Neck: Supple. Chest: Reveals crackles at the lung bases with slight decrease in breath sounds at the right base but improved over the last 2 days. LABORATORY DATA: White blood count 16.6, hemoglobin 12.9, platelet count 692,000, sodium 138, potassium 4.2, chloride 98, bicarbonate 28, BUN 24, creatinine 1.1. IMPRESSION: A 59-year-old with: 1. Aspiration pneumonia. 2. Hypoxemic respiratory failure. 3. Pleuritic chest pain. PLAN: 1. Continue bronchial hygiene. 2. Continue current antibiotic regimen. 3. Continue reflux precautions. 4. Consider discharge home toward the end of the week with a course of ciprofloxacin and doxycycline. cc: Francisco Marie MD
[2019-12-16] MEDS: ELAVIL PO SCH (21:13)
[2019-12-17] MEDS: ZOSYN 3.375 GM in NS 50 ML IV SCH ×4 (03:24→21:49)
[2019-12-17] MEDS: DUONEB (A & A) INH SCH ×6 (03:56→23:18)
[2019-12-17 07:18] LABS: HEMATOCRIT 42.1 % (42.0-52.0); HEMOGLOBIN 13.9 g/dL (14.0-18.0); MCH 29.8 PG (27-31); MCV 90.3 FL (81-99); MPV 8.1 FL (7.4-10.4); RBC 4.66 XMIL (4.7-6.1); RDW 16.1 % (11.5-14.5); WBC 14.51 X1000 (4.8-10.8)
--- NOTE | 2019-12-17 07:44 | Diag Imaging Result Doc PS360 ---
CHEST-2 VIEWS - 12/17/2019 INDICATION: hypoxia COMPARISON: 12/15/2019 FINDINGS: Stable right hemidiaphragm elevation. Stable faint bibasilar atelectasis or infiltrate. No new infiltrates. No pneumothorax or pleural effusion. Heart size is normal. IMPRESSION: No change from prior. Electronically signed by Hero Peguero 12/17/2019 7:42 AM
[2019-12-17] MEDS: MUCOMYST 20% INH SCH ×2 (09:00→20:02)
[2019-12-17] MEDS: PRINIVIL PO SCH (10:31)
[2019-12-17] MEDS: DULCOLAX PR SCH ×2 (10:31→21:50)
[2019-12-17] MEDS: MIRALAX PO SCH (10:31)
[2019-12-17] MEDS: FISH OIL CONCENTRATE PO SCH ×2 (10:31→21:50)
[2019-12-17] MEDS: HYDROCHLOROTHIAZIDE PO SCH (10:31)
[2019-12-17] MEDS: VANCOMYCIN 1,600 MG in NS 250 ML IV SCH (11:09)
--- NOTE | 2019-12-17 12:58 | PROGRESS NOTE ---
DATE: 12/17/2019 SUBJECTIVE: I have seen and examined Mr. Anthony today. Mr. Anthony refers to be doing a lot better. He is currently on nasal cannular at 2 L and he is saturating 99%. OBJECTIVE: Vital Signs: Blood pressure is 111/96, pulse of 89 respiration is 19, temperature is 98.3 degrees. General: Mr. Anthony is a 59-year-old gentleman. He is in bed. No distress. HEENT: Mucosa is pink and moist. Anicteric. Acyanotic. Neck: Supple. Chest: Air entry is bilaterally reduced. There is still some end-expiratory distant wheezing, but no crackles. Cardiovascular: Regular rate and rhythm. No murmurs, no rubs, no gallops. Gastrointestinal: Soft, nontender. Bowel sounds are present. There is no hepatosplenomegaly. Extremities: No pedal edema. Distal pulses present. Central Nervous System: The patient is awake, alert and oriented. He is legally blind in his left eye. LABORATORY DATA: WBC is down to 14.51, hemoglobin is 13.9, platelet count of 679,000. Chemistry is also reviewed and is within normal parameters from yesterday. ASSESSMENT: 1. Acute hypoxemic respiratory failure secondary to bilateral lower lobe pneumonia questionable for aspiration pneumonitis. The patient is on antimicrobial coverage for a total of 10 to 14 days. He is also on supplemental oxygen which has been titrated down to 2 L today. 2. Sepsis on presentation secondary to aspiration pneumonia. 3. Transaminitis, improved. 4. Hypertension, controlled. 5. Poor dentition. The patient has been advised to follow up with dental care. PLAN: In general, I think Mr. Anthony is doing well. His oxygen has been transitioned to nasal cannula, he is currently on 2 L which I think he can potentially be weaned off. We will also get a repeat chest x-ray on him tomorrow and hopefully if everything is fine we can get him discharged. Mr. Anthony will need to be on antibiotics for a total of 14 days. We will potentially be able to send him home on ciprofloxacin and doxycycline as recommended by Pulmonary Medicine. cc: Dg Ratliff MD
[2019-12-17] MEDS: LEVAQUIN 750 MG/D5W 750 MG/150 ML IVPB IV SCH (13:42)
[2019-12-17] MEDS: SODIUM CHLORIDE 0.9% INJ SCH (15:21)
[2019-12-17] MEDS: PROTONIX IV SCH (15:21)
[2019-12-17] MEDS: LOVENOX SUBQ SCH (17:48)
--- NOTE | 2019-12-17 19:31 | PULMONOLOGY PROGRESS NOTE ---
DATE: 12/17/2019 SUBJECTIVE: The patient is awake, alert, and conversant. He feels better. He has been decreased to 2 L per nasal cannula. OBJECTIVE: Vital Signs: The patient has been afebrile for the last 24 hours. Blood pressure 111/96, heart rate 89, respiratory rate 12, oxygen saturation 99%. HEENT: Pupils are equal and reactive. Oropharynx appears clear. neck: Neck is supple. Chest: Reveals minimal crackles in the lung bases. Cardiac: S1-S2. abdomen: Abdomen is soft. EXTREMITIES: Extremities are without edema. LABORATORY DATA: Chest x-ray reveals minimal changes in both lung bases. White blood count 14.5, hemoglobin 13.9, platelet count 676,000. Microbiology reveals no new data. IMPRESSION: A 59-year-old with: 1. Aspiration pneumonia. 2. Pleuritic chest pain which is resolving. 3. Hypoxemic respiratory failure. DISCUSSION: A 59-year-old with problems outlined above. The patient continues to improve. RECOMMENDATIONS: 1. Continue bronchial hygiene. 2. Discussed reflux precautions at length. The patient is aware that he should eat a small meal several hours before going to bed and should never eat and go to bed. 3. Anticipate discharge home soon. 4. To complete an outpatient course of antibiotics. cc: Francisco Marie MD
[2019-12-17] MEDS: ELAVIL PO SCH (21:50)
[2019-12-17] MEDS: NORCO-10 PO PRN (23:23)
[2019-12-18] MEDS: ZOSYN 3.375 GM in NS 50 ML IV SCH ×2 (03:23→09:59)
[2019-12-18 03:31] LABS: HEMATOCRIT 41.9 % (42.0-52.0); HEMOGLOBIN 13.7 g/dL (14.0-18.0); MCH 29.3 PG (27-31); MCHC 32.7 g/dL (33-37); MCV 89.5 FL (81-99); MPV 7.9 FL (7.4-10.4); RBC 4.68 XMIL (4.7-6.1); RDW 15.6 % (11.5-14.5); WBC 15.43 X1000 (4.8-10.8)
[2019-12-18 03:50] LABS: AGAP 13; ALBUMIN 3.2 g/dL (3.5-5.0); BUN 21 mg/dL (8-22); CALCIUM 9.4 mg/dL (8.8-10.2); CHLORIDE 97 mmol/L (98-107); COSMO 268; CREATININE 1.1 mg/dL (0.7-1.2); ESTIMATED GFR > 60; GLUCOSE 105 mg/dL (70-104); PHOSPHORUS 4.2 mg/dL (2.7-4.5); POTASSIUM 4.2 mmol/L (3.5-5.1); SODIUM 132 mmol/L (136-145); TCO2 22 mmol/L (25-35)
[2019-12-18] MEDS: DUONEB (A & A) INH SCH ×3 (04:04→11:22)
[2019-12-18] MEDS: VANCOMYCIN 1,600 MG in NS 250 ML IV SCH (04:45)
[2019-12-18 07:42] VITALS: BP 103/66
[2019-12-18] MEDS: MUCOMYST 20% INH SCH (07:58)
[2019-12-18] MEDS: DULCOLAX PR SCH (09:51)
[2019-12-18] MEDS: MIRALAX PO SCH (09:52)
[2019-12-18] MEDS: PRINIVIL PO SCH (09:59)
[2019-12-18] MEDS: HYDROCHLOROTHIAZIDE PO SCH (09:59)
[2019-12-18] MEDS: FISH OIL CONCENTRATE PO SCH (09:59)
[2019-12-18] MEDS: LEVAQUIN 750 MG/D5W 750 MG/150 ML IVPB IV SCH (10:01)
--- NOTE | 2019-12-18 17:56 | DISCHARGE SUMMARY ---
ADMISSION DATE: 12/08/2019 DISCHARGE DATE: 12/18/2019 DISPOSITION: Home. FOLLOWUP: Francisco Marie MD CONSULTATION DURING THIS ADMISSION: Pulmonary Medicine was consulted. Patient was seen by Dr. Marie followed up by Dr. Campbell. INVASIVE PROCEDURES DONE DURING THIS ADMISSION: None. IMAGING STUDIES OF SIGNIFICANCE: Chest x-ray initially did show bibasilar atelectasis suspicious for superimposed pneumonia in the left. A CT scan of the chest showed bibasilar pulmonary infiltrates, biliary stent with pericolic soft tissue stranding. A CT of the lungs subsequently was done at a later date which showed dense bibasilar airspace infiltrates that are slightly worse than previous studies. Subsequent chest x-rays did show improvement. ADMISSION DIAGNOSES: 1. Acute respiratory failure secondary to bibasilar pneumonia. 2. Elevated liver enzymes. DIAGNOSES AT THE TIME OF DISCHARGE: 1. Acute hypoxemic respiratory failure secondary to bilateral lower lobe pneumonia questionable for aspiration pneumonitis. 2. Sepsis on presentation secondary to aspiration pneumonia. 3. Transaminitis. 4. Hypertension. 5. Poor dentition. 6. Obesity with body mass index of 33.1. DISCHARGE MEDICATIONS: 1. Lisinopril with hydrochlorothiazide 1 tablet daily. 2. [place]-3 fatty acid 1 tablet daily. 3. Amitriptyline 25 mg p.o. at bedtime. 4. Gabapentin 800 p.o. q.4 times per day. 5. Ciprofloxacin 500 b.i.d. 6. Doxycycline 100 mg b.i.d. 7. Omeprazole 40 mg p.o. daily. PRESENTING COMPLAINT: Shortness of breath. HISTORY OF PRESENTING COMPLAINT: Mr. Anthony, a 59-year-old gentleman with history of hypertension, chronic pain, came to the emergency room because of shortness of breath. The patient was initially evaluated at [place] and admitted for suspicion of pneumonia. HOSPITAL COURSE: Mr. Anthony continued to be in [place] for a few days; however, he continued to show remarkable signs of respiratory compromise. He was therefore transferred from [place] to [facility] on 12/13/2019. Upon reaching, he was evaluated as he was consulted with Pulmonary Medicine. Patient was initially seen by Dr. Marie. COVID-19 testing was done, which came back negative. Mr. Anthony continues to improve with antimicrobial coverage. His oxygen needs continued to be less and less. He was transition from non-rebreather to nasal cannula. This morning, he has been saturating 96% on room air. He refers to be doing a whole lot better. His current vitals are blood pressure 103/66, pulse of 88, respirations 16, temperature 98 degrees. The patient was saturating 96% on room air. We think Mr. Anthony is clinically stable to be discharged. He needs to continue with p.o. antibiotics for a total of 14 days. He is also advised to observe anti-reflux management at all times, and he has been advised to follow up with dental team to work on some of his decayed teeth. All the discharge instructions have been discussed with him, and he voiced understanding. TIME SPENT FOR DISCHARGE: 38 minutes. cc: Dg Ratliff MD
[2019-12-18] MEDS ORDERED: VANCOMYCIN 1,800 MG in NS 250 ML IV SCH (18:00)
== END 2019-12-18 13:34 | disposition home or self-care (01) | DRG 871 ==
LOC: P.ED 17:58 → P.MEDSURG 22:13 → SUATTDRO 22:13 → 2N 12-13 13:56 → 3N 12-16 14:11
PROVIDERS: ATTEND Internal Medicine